=== PATIENT | female | born 1980 | race Caucasian/White ===

== ENCOUNTER 2019-12-21 14:04 | Emergency (ER) | payer MEDICAID ==
[~2019-12-21] VITALS: Ht 172.7 cm; Wt 100.0 kg
--- NOTE | 2019-12-21 14:30 | ED GU-Female ---
General Chief Complaint: Female Reproductive Stated Complaint: CRAMPS/BLOODCLOTS Nursing Triage Note: TO ED PER W/C REPORTS HAD HER PEROID LAST WEEK THAN YESTERDAY STARTED WITH VAG BLEEDING AGAIN WITH LG CLOTS. Nursing Sepsis Screen: No Definite Risk Source: patient Exam Limitations: no limitations History of Present Illness Date Seen by Provider: Dec 21, 2019 Time Seen by Provider: 14:27 Initial Comments To ER with reports of heavy vaginal bleeding that began yesterday. She noticed some clots. She had her period last week. Denies fevers or chills. She was started on antibiotics for a UTI that was believed to be the cause of these symptoms last week. Timing/Duration: constant Severity/Quality: moderate Location: suprapubic Radiation: none Activities at Onset: none Prior Genitourinary Problems: none Associated Symptoms: denies symptoms Allergies and Home Medications Allergies Coded Allergies: No Known Drug Allergies (Unverified , 12/21/19) Home Medications Doxycycline Hyclate 100 Mg Tablet, 100 MG PO BID Prescribed by: ELVA AGUILLON on 12/21/191739 Hydrocodone/Acetaminophen 1 Each Tablet, 1 EACH PO Q4-6HR PRN for PAIN-MODERATE Prescribed by: ELVA AGUILLON on 12/21/191740 Medroxyprogesterone Acetate 10 Mg Tablet, 10 MG PO DAILY Prescribed by: ELVA AGUILLON on 12/21/191739 Metronidazole 500 Mg Tablet, 500 MG PO TID Prescribed by: ELVA AGUILLON on 12/21/191739 Patient Home Medication List Home Medication List Reviewed: Yes Review of Systems Review of Systems Constitutional: see HPI EENTM: see HPI Respiratory: no symptoms reported Cardiovascular: no symptoms reported Genitourinary: see HPI Musculoskeletal: no symptoms reported Skin: no symptoms reported Psychiatric/Neurological: No Symptoms Reported Endocrine: No Symptoms Reported Past [id number]-Umuxxp-Xlapwy Hx Patient Social History Recent Foreign Travel: No Contact w/Someone Who Travel: No Recent Infectious Disease Expo: No Physical Exam Vital Signs Vital Signs - First Documented 12/21/19 14:10 Pulse 110 Resp 18 B/P (MAP) 118/89 (99) Pulse Ox 98 O2 Delivery Room Air Capillary Refill : Less Than 3 Seconds Height, Weight, BMI Height: '" Weight: lbs. oz. kg; 33.00 BMI Method: General Appearance: WD/WN, no apparent distress Neck: non-tender, full range of motion Cardiovascular: no murmur, tachycardia Respiratory: normal breath sounds, no respiratory distress, no accessory muscle use Gastrointestinal: normal bowel sounds, non tender Extremities: normal range of motion, non-tender Neurologic/Psychiatric: alert, normal mood/affect, oriented x 3 Progress/Results/Core Measures Suspected Sepsis Recent Fever Within 48 Hours: No Infection Criteria Present: None New/Unexplained Altered Menta: No Sepsis Screen: No Definite Risk SIRS Temperature: Pulse: 110 Respiratory Rate: 18 Laboratory Tests 12/21/19 14:32: White Blood Count 14.6H Blood Pressure 118 /89 Mean: 99 Laboratory Tests 12/21/19 14:32: Platelet Count 376 Results/Orders Lab Results Laboratory Tests Test 12/21/19 14:32 12/21/19 14:37 12/21/19 17:30 Range/Units White Blood Count 14.6 H 4.3-11.0 10^3/uL Red Blood Count 4.86 4.35-5.85 10^6/uL Hemoglobin 13.4 11.5-16.0 G/DL Hematocrit 40 35-52 % Mean Corpuscular Volume 83 80-99 FL Mean Corpuscular Hemoglobin 28 25-34 PG Mean Corpuscular Hemoglobin Concent 33 32-36 G/DL Red Cell Distribution Width 13.6 10.0-14.5 % Platelet Count 376 130-400 10^3/uL Mean Platelet Volume 9.5 7.4-10.4 FL Neutrophils (%) (Auto) 72 42-75 % Lymphocytes (%) (Auto) 20 12-44 % Monocytes (%) (Auto) 6 0-12 % Eosinophils (%) (Auto) 1 0-10 % Basophils (%) (Auto) 0 0-10 % Neutrophils # (Auto) 10.5 H 1.8-7.8 X 10^3 Lymphocytes # (Auto) 2.9 1.0-4.0 X 10^3 Monocytes # (Auto) 0.9 0.0-1.0 X 10^3 Eosinophils # (Auto) 0.2 0.0-0.3 10^3/uL Basophils # (Auto) 0.0 0.0-0.1 10^3/uL Neutrophils % (Manual) 70 % Lymphocytes % (Manual) 24 % Monocytes % (Manual) 3 % Eosinophils % (Manual) 2 % Basophils % (Manual) 1 % Blood Morphology Comment NORMAL Serum Test, Qualitative NEGATIVE NEGATIVE C-Reactive Protein High Sensitivity 1.10 H 0.00-0.50 MG/DL Urine Color YELLOW Urine Clarity CLEAR Urine pH 6.0 5-9 Urine Specific [place] 1.020 1.016-1.022 Urine Protein NEGATIVE NEGATIVE Urine Glucose (UA) NEGATIVE NEGATIVE Urine Ketones NEGATIVE NEGATIVE Urine Nitrite NEGATIVE NEGATIVE Urine Bilirubin NEGATIVE NEGATIVE Urine Urobilinogen 0.2 < = 1.0 MG/DL Urine Leukocyte Esterase NEGATIVE NEGATIVE Urine RBC (Auto) TRACE-I NEGATIVE Urine RBC 0-2 /HPF Urine WBC 2-5 /HPF Urine Squamous Epithelial Cells RARE /HPF Urine Crystals NONE /LPF Urine Bacteria NEGATIVE /HPF Urine Casts NONE /LPF Urine Mucus SMALL H /LPF Urine Culture Indicated NO Urine Opiates Screen POSITIVE H NEGATIVE Urine Oxycodone Screen NEGATIVE NEGATIVE Urine Methadone Screen NEGATIVE NEGATIVE Urine Propoxyphene Screen NEGATIVE NEGATIVE Urine Barbiturates Screen NEGATIVE NEGATIVE Ur Tricyclic Antidepressants Screen NEGATIVE NEGATIVE Urine Phencyclidine Screen NEGATIVE NEGATIVE Urine Amphetamines Screen POSITIVE H NEGATIVE Urine Methamphetamines Screen POSITIVE H NEGATIVE Urine Benzodiazepines Screen NEGATIVE NEGATIVE Urine Cocaine Screen NEGATIVE NEGATIVE Urine Cannabinoids Screen POSITIVE H NEGATIVE My Orders Orders - ELVA AGUILLON [employer] Cbc With Automated Diff (12/21/19 14:09) Abo Rh Type (12/21/19 14:09) Hcg,Qualitative Serum (12/21/19 14:09) Ua Culture If Indicated (12/21/19 14:09) Drug Screen Stat (Urine) (12/21/19 14:23) Ketorolac Injection (Toradol Injection) (12/21/19 14:45) Diphenhydramine Injection (Benadryl Inje (12/21/19 14:45) Ns Iv 1000 Ml (Sodium Chloride 0.9%) (12/21/19 14:45) Manual Differential (12/21/19 14:32) Us Non Ob Transvaginal [id number] (12/21/19 14:23) Fentanyl Injection (Sublimaze Injection (12/21/19 15:30) Ct Abdomen/Pelvis W (12/21/19 15:27) Hs C Reactive Protein (12/21/19 15:28) Ampicillin/Sulbactam Injection (Unasyn 3 (12/21/19 15:30) Doxycycline Injection (Vibramycin Inject (12/21/19 15:30) Iohexol Injection (Omnipaque 350 Mg/Ml 1 (12/21/19 15:45) Received Contrast (Hold Metformin- Contr (12/21/19 15:45) Sodium Chloride Flush (Catheter Flush Sy (12/21/19 15:45) Ns (Ivpb) (Sodium Chloride 0.9% Ivpb Bag (12/21/19 15:45) Hydrocodone/Apap 5/325 Tablet (Lortab 5 (12/21/19 17:30) Medroxyprogesterone Tablet (Provera Tabl (12/21/19 17:30) Medications Given in ED Current Medications Medications Dose Ordered Sig/Faizan Route Start Time Stop Time Status Last Admin Dose Admin Ampicillin Sodium/ Sulbactam Sodium 3 gm/Sodium Chloride 100 ml @ 200 mls/hr ONCE ONCE IV 12/21/19 15:30 12/21/19 15:59 DC 12/21/19 16:00 200 MLS/HR Diphenhydramine HCl 25 mg ONCE ONCE IVP 12/21/19 14:45 12/21/19 14:46 DC 12/21/19 14:47 25 MG Doxycycline Hyclate 100 mg/ Sodium Chloride 100 ml @ 100 mls/hr ONCE ONCE IV 12/21/19 15:30 12/21/19 16:29 DC 12/21/19 17:06 100 MLS/HR Fentanyl Citrate 50 mcg ONCE ONCE IVP 12/21/19 15:30 12/21/19 15:31 DC 12/21/19 15:31 50 MCG Iohexol 100 ml ONCE ONCE IV 12/21/19 15:45 12/21/19 15:46 DC 12/21/19 16:57 100 ML Ketorolac Tromethamine 15 mg ONCE ONCE IVP 12/21/19 14:45 12/21/19 14:46 DC 12/21/19 14:48 15 MG Sodium Chloride 100 ml ONCE ONCE IV 12/21/19 15:45 12/21/19 15:46 DC 12/21/19 16:57 100 ML Vital Signs/I&O 12/21/19 14:10 Pulse 110 Resp 18 B/P (MAP) 118/89 (99) Pulse Ox 98 O2 Delivery Room Air Capillary Refill : Less Than 3 Seconds Blood Pressure Mean: 99 Diagnostic Imaging Diagonstic Imaging: Xray Comments NAME: JASON REID [facility] REC#: [id number] PT STATUS: REG ER : 1980 PHYSICIAN: ELVA AGUILLON APRN ADMIT DATE: 12/21/19/ER Draft Date of Exam:12/21/19 US NON OB TRANSVAGINAL [id number] PROCEDURE: US NON-OB transvaginal. TECHNIQUE: Multiple Real-time grayscale images were obtained of the pelvis in various projections endovaginally. INDICATION: Pelvic cramping and bleeding. FINDINGS: The uterus is anteverted measuring 8.9 x 4.6 x 5.5 cm. The endometrium is 5 mm in thickness. No myometrial mass is detected. The left ovary is enlarged measuring 7.0 x 5.1 x 4.8 mm. There is a complex mass in the left ovary measuring 3.8 x 4.1 x 3.8 cm. This does show internal septations and most likely represents a hemorrhagic cyst. The right ovary is also enlarged measuring 6.1 x 3.4 x 5.6 cm. There is an area of hypoechogenicity immediately adjacent to or arising from the right ovary measuring 4.6 x 3.0 x 2.7 cm. This too contains internal echoes and appears complex. Minimal free fluid is present. IMPRESSION: Complex adnexal masses bilaterally. This appears to represent a hemorrhagic cyst involving the left ovary. The complex mass on the right is indeterminate but could represent a hemorrhagic cyst as well. The possibility of a paraovarian process such as tubo-ovarian abscess could not be entirely excluded. Followup could be obtained to confirm clearing and stability. No other significant abnormality is detected. Dictated on workstation # [id number] Dict: 12/21/19 1536 Trans: 12/21/19 1541 [id number] Interpreted by: ZACH MANNING MD Electronically signed by: NAME: JASON REID [facility] REC#: [id number] PT STATUS: REG ER : 1980 PHYSICIAN: ELVA AGUILLON APRN ADMIT DATE: 12/21/19/ER Draft Date of Exam:12/21/19 CT ABDOMEN/PELVIS W PROCEDURE: CT abdomen and pelvis with contrast. TECHNIQUE: Multiple contiguous axial images were obtained through the abdomen and pelvis after administration of intravenous contrast. Auto Exposure Controls were utilized during the CT exam to meet ALARA standards for radiation dose reduction. INDICATION: Vaginal bleeding and suprapubic pain. FINDINGS: The lung bases are clear. The liver and gallbladder are unremarkable. No biliary ductal dilatation is detected. Pancreas and spleen are unremarkable. No adrenal mass is detected. Kidneys are unremarkable. There is no hydronephrosis. Aorta is non-aneurysmal. Bowel loops are normal caliber. There is diverticulosis of the sigmoid but no definite evidence of acute diverticulitis is seen. Complex cystic masses in bilateral adnexa are again noted, correlating with findings noted on recent ultrasound. Complex cystic mass on the right is approximately 5.1 cm and lesion on the left is 5.7 cm. No free fluid is seen. Bladder is decompressed. Uterus is unremarkable. No free air is identified. Bony structures are nonacute. IMPRESSION: 1. Uncomplicated diverticulosis. 2. Complex cystic adnexal masses, correlating with ultrasound from the same day and likely ovarian. No other significant abnormality is detected. Dictated on workstation # [id number] Dict: 12/21/19 1703 Trans: 12/21/19 1709 [facility] [id number] Interpreted by: ZACH MANNING MD Electronically signed by: Departure Communication (Admissions) i would like her to be seen this week, called [facility], soonest new patient appointments would be tomorrow at [address] [facility] with Dr Roman Riggs. No openings on or Friday. Impression Primary Impression: Abnormal vaginal bleeding Additional Impression: Ovarian cyst Disposition: 01 HOME, SELF-CARE Condition: Stable Departure-Patient Inst. Decision time for Depature: 17:31 Referrals: DANO LINTON DO NO,LOCAL PHYSICIAN (PCP) Primary Care Physician Patient Instructions: IRREGULAR VAGINAL BLEEDING, Ovarian Cysts Add. Discharge Instructions: Take medication as directed starting this evening 2. Follow-up with Dr. Roman Riggs at the [facility] in [facility] tomorrow morning at 8 AM. Return to ER for any concerns. All discharge instructions reviewed with patient and/or family. Voiced understanding. Scripts Hydrocodone/Acetaminophen (Lorcet 5-325 mg Tablet) 1 Each Tablet 1 EACH PO Q4-6HR PRN for PAIN-MODERATE MDD 10 for 7 Days, #20 TAB Prov: ELVA AGUILLON APRN 12/21/19 Medroxyprogesterone Acetate (Medroxyprogesterone Acetate) 10 Mg Tablet 10 MG PO DAILY, #2 TAB Prov: ELVA AGUILLON APRN 12/21/19 Metronidazole (Flagyl) 500 Mg Tablet 500 MG PO TID, #21 TAB Prov: ELVA AGUILLON APRN 12/21/19 Doxycycline Hyclate (Doxycycline Hyclate) 100 Mg Tablet 100 MG PO BID, #20 TAB 0 Refills Prov: ELVA AGUILLON APRN 12/21/19 Copy Copies To 1: ROMAN RIGGS MD, PETER J APRN Dec 21, 2019 14:29
[2019-12-21 14:44] LABS: BASOPHILS % (AUTO) 0 % (0-10); EOSINOPHILS # (AUTO) 0.2 10^3/uL (0.0-0.3); EOSINOPHILS % (AUTO) 1 % (0-10); HEMATOCRIT 40 % (35-52); HEMOGLOBIN 13.4 G/DL (11.5-16.0); LYMPHOCYTES # (AUTO) 2.9 X 10^3 (1.0-4.0); LYMPHOCYTES % (AUTO) 20 % (12-44); MEAN CORPUSCULAR HEMOGLOBIN 28 PG (25-34); MEAN CORPUSCULAR HGB CONC 33 G/DL (32-36); MEAN CORPUSCULAR VOLUME 83 FL (80-99); MEAN PLATELET VOLUME 9.5 FL (7.4-10.4); MONOCYTES # (AUTO) 0.9 X 10^3 (0.0-1.0); MONOCYTES % (AUTO) 6 % (0-12); NEUTROPHILS # (AUTO) 10.5 X 10^3 (1.8-7.8); NEUTROPHILS % (AUTO) 72 % (42-75); PLATELET COUNT 376 10^3/uL (130-400); RED CELL DISTRIBUTION WIDTH 13.6 % (10.0-14.5); WHITE BLOOD COUNT 14.6 10^3/uL (4.3-11.0)
[2019-12-21] MEDS ORDERED: diphenhydrAMINE 50 MG/ML INJ (BENADRYL) IVP ONE (14:45)
[2019-12-21] MEDS ORDERED: NS IV 1000 ML 1,000 ML IV SCH (14:45)
[2019-12-21] MEDS ORDERED: KETOROLAC 30 MG/ML VIAL IVP ONE (14:45)
[2019-12-21] MEDS ORDERED: DOXYCYCLINE INJECTION 100 MG in NS (IVPB) 100 ML IV ONE (15:30)
[2019-12-21] MEDS ORDERED: AMPICILLIN/SULBACTAM INJECTION 3 GM in NS (IVPB) 100 ML IV ONE (15:30)
[2019-12-21] MEDS ORDERED: fentaNYL INJECTION 100 MCG/2 ML AMP IVP ONE (15:30)
--- OUTSIDE RECORDS SUMMARY | 2019-12-21 15:35 | XMS REPORT | Continuity of Care Document ---
Author Organization Unknown Address Unknown Phone Unavailable Allergies There is no data. Medications There is no data. Problems There is no data. Procedures There is no data. Results Test Result Range Complete blood count (CBC) with automate d white blood cell (WBC) differential - 12/21/19 14:32 Blood leukocytes automated count (number/volume) 14.6 10*3/uL 4.3-11.0 Blood erythrocytes automated count (number/volume) 4.86 10*6/uL 4.35-5.85 Venous blood hemoglobin measurement (mass/volume) 13.4 g/dL 11.5-16.0 Blood hematocrit (volume fraction) 40 % 35-52 Automated erythrocyte mean corpuscular volume 83 [ foz_us] 80-99 Automated erythrocyte mean corpuscular h emoglobin (mass per erythrocyte) 28 pg 25-34 Automated erythrocyte mean corpuscular h emoglobin concentration measurement (mass/volume) 33 g/dL 32-36 Automated erythrocyte distribution width ratio 13. 6 % 10.0- 14.5 Automated blood platelet count (count/volume) 376 10*3/uL 130-400 Automated blood platelet mean volume measurement 9.5 [foz_us] 7.4-10.4 Automated blood neutrophils/100 leukocytes 72 % 42-75 Automated blood lymphocytes/100 leukocytes 20 % 12-44 Blood monocytes/100 leukocytes 6 % 0-12 Automated blood eosinophils/100 leukocytes 1 % 0-10 Automated blood basophils/100 leukocytes 0 % 0-10 Blood neutrophils automated count (number/volume) 10.5 10*3 1.8-7.8 Blood lymphocytes automated count (number/volume) 2.9 10*3 1.0-4.0 Blood monocytes automated count (number/volume) 0. 9 10*3 0.0-1.0 Automated eosinophil count 0.2 10*3/uL 0 .0-0.3 Automated blood basophil count (count/volume) 0.0 10*3/uL 0.0-0.1 Serum or plasma choriogonadotropin (preg jhony test) detection - 12/21/19 14:32 Serum or plasma choriogonadotropin ( test) de tection NEGATIVE NEGATIVE ABO+Rh group - 12/21/19 14:37 ABO+Rh group OP NRG Encounters ACCT No. Visit Date/Time Discharge Status Pt. Type Provider Facility Loc./Unit Complaint [id number] 12/08/2019 18:30:00 12/08/2019 23:59: 59 [facility] [id number] 12/21/2019 14:45:00 Document Registration
--- NOTE | 2019-12-21 15:41 | Diagnostic Imaging Report ---
PROCEDURE: US NON-OB transvaginal. TECHNIQUE: Multiple Real-time grayscale images were obtained of the pelvis in various projections endovaginally. INDICATION: Pelvic cramping and bleeding. FINDINGS: The uterus is anteverted measuring 8.9 x 4.6 x 5.5 cm. The endometrium is 5 mm in thickness. No myometrial mass is detected. The left ovary is enlarged measuring 7.0 x 5.1 x 4.8 mm. There is a complex mass in the left ovary measuring 3.8 x 4.1 x 3.8 cm. This does show internal septations and most likely represents a hemorrhagic cyst. The right ovary is also enlarged measuring 6.1 x 3.4 x 5.6 cm. There is an area of hypoechogenicity immediately adjacent to or arising from the right ovary measuring 4.6 x 3.0 x 2.7 cm. This too contains internal echoes and appears complex. Minimal free fluid is present. IMPRESSION: Complex adnexal masses bilaterally. This appears to represent a hemorrhagic cyst involving the left ovary. The complex mass on the right is indeterminate but could represent a hemorrhagic cyst as well. The possibility of a paraovarian process such as tubo-ovarian abscess could not be entirely excluded. Followup could be obtained to confirm clearing and stability. No other significant abnormality is detected. Dictated by: Dictated on workstation # [id number]
[2019-12-21] MEDS ORDERED: HOLD METFORMIN - RECEIVED CONTRAST 20 ML VIAL IV SCH (15:45)
[2019-12-21] MEDS ORDERED: IOHEXOL 350 MG/ML 100 ML (OMNIPAQUE 350) VIAL IV ONE (15:45)
[2019-12-21] MEDS ORDERED: NS 100 ML (IVPB) BAG IV ONE (15:45)
[2019-12-21] MEDS ORDERED: CATHETER FLUSH 10 ML SYR IV PRN (15:45)
[2019-12-21 15:51] LABS: BASOPHILS % (MANUAL) 1 %; EOSINOPHILS % (MANUAL) 2 %; LYMPHOCYTES % (MANUAL) 24 %; MONOCYTES % (MANUAL) 3 %; NEUTROPHILS % (MANUAL) 70 %; RBC MORPH NORMAL
--- NOTE | 2019-12-21 17:09 | Diagnostic Imaging Report ---
PROCEDURE: CT abdomen and pelvis with contrast. TECHNIQUE: Multiple contiguous axial images were obtained through the abdomen and pelvis after administration of intravenous contrast. Auto Exposure Controls were utilized during the CT exam to meet ALARA standards for radiation dose reduction. INDICATION: Vaginal bleeding and suprapubic pain. FINDINGS: The lung bases are clear. The liver and gallbladder are unremarkable. No biliary ductal dilatation is detected. Pancreas and spleen are unremarkable. No adrenal mass is detected. Kidneys are unremarkable. There is no hydronephrosis. Aorta is non-aneurysmal. Bowel loops are normal caliber. There is diverticulosis of the sigmoid but no definite evidence of acute diverticulitis is seen. Complex cystic masses in bilateral adnexa are again noted, correlating with findings noted on recent ultrasound. Complex cystic mass on the right is approximately 5.1 cm and lesion on the left is 5.7 cm. No free fluid is seen. Bladder is decompressed. Uterus is unremarkable. No free air is identified. Bony structures are nonacute. IMPRESSION: 1. Uncomplicated diverticulosis. 2. Complex cystic adnexal masses, correlating with ultrasound from the same day and likely ovarian. No other significant abnormality is detected. Dictated by: Dictated on workstation # [id number]
--- NOTE | 2019-12-21 17:29 | NUR ---
CALLED AND GAVE HER FRIEND TAWANA UPDATE PER PATIENT REQUEST.
[2019-12-21] MEDS ORDERED: HYDROcodone/APAP 5 MG/325 MG (LORTAB) TAB PO ONE (17:30)
[2019-12-21] MEDS ORDERED: medroxyPROGESTERone 10 MG (PROVERA) TAB PO ONE (17:30)
[2019-12-21 17:36] LABS: BILIRUBIN,URINE NEGATIVE (NEGATIVE); CLARITY,URINE CLEAR; COLOR,URINE YELLOW; GLUCOSE, URINE (UA) NEGATIVE (NEGATIVE); KETONES,URINE NEGATIVE (NEGATIVE); LEUKOCYTE ESTERASE ,URINE NEGATIVE (NEGATIVE); NITRITE,URINE NEGATIVE (NEGATIVE); PROTEIN,URINE NEGATIVE (NEGATIVE)
[2019-12-21] MEDS ORDERED: MEDR10TA9 PO (17:40)
[2019-12-21] MEDS ORDERED: DOXY100T2 PO (17:40)
[2019-12-21] MEDS ORDERED: METR500T PO (17:40)
[2019-12-21] MEDS ORDERED: HYDR-3870 PO (17:40)
[2019-12-21 17:48] LABS: BACTERIA,URINE NEGATIVE /HPF; RBC,URINE 0-2 /HPF; SQUAMOUS EPITHELIAL CELL,UR RARE /HPF
[2019-12-21 17:54] LABS: AMPHETAMINE SCREEN, URINE POSITIVE (NEGATIVE); BARBITURATE SCREEN URINE NEGATIVE (NEGATIVE); BENZODIAZEPINES SCREEN URINE NEGATIVE (NEGATIVE); CANNABINOID SCREEN, URINE POSITIVE (NEGATIVE); COCAINE SCREEN URINE NEGATIVE (NEGATIVE); METHADONE STAT NEGATIVE (NEGATIVE); METHAMPHETAMINE SCREEN URINE S POSITIVE (NEGATIVE); OPIATE SCREEN URINE POSITIVE (NEGATIVE); OXYCODONE STAT NEGATIVE (NEGATIVE); PROPOXYPHENE STAT NEGATIVE (NEGATIVE); TRICYCLIC ANTIDEPRESSANTS SCRE NEGATIVE (NEGATIVE)
[2019-12-21 18:25] VITALS: BP 128/81
== END 2019-12-21 18:17 | disposition home or self-care (01) ==
LOC: EDUNIT# 14:04 → ER 14:06
DX: N93.9 Abnormal uterine and vaginal bleeding, unspecified (principal); N83.202 Unspecified ovarian cyst, left side; N83.201 Unspecified ovarian cyst, right side
CPT/HCPCS: 36415; 51701; 74177; 76830; 80306; 81000; 84703; 85007; 85027; 86141; 86900; 86901

== ENCOUNTER 2020-01-11 19:42 | Inpatient (IN) | payer SELFPAY ==
[~2020-01-11] VITALS: Ht 172.7 cm; Wt 106.5 kg
[~2020-01-11 19:42] MED LIST: DOXY100T2 PO; HYDR-3870 PO; MEDR10TA9 PO; METR500T PO
--- NOTE | 2020-01-11 19:59 | ED Abdominal Pain ---
General Stated Complaint: R SIDE PAIN Source of Information: Patient Exam Limitations: No Limitations History of Present Illness Date Seen by Provider: Jan 11, 2020 Time Seen by Provider: 19:45 Initial Comments The patient presents to ER by private conveyance from home with chief complaint of about 3 or 4 days of right lower quadrant abdominal pain presently 8 out of 10. She has not taken anything for the pain. She says she had the same symptoms a week or 2 ago and presented to the ER. They said she had a ruptured cyst and put her on a couple antibiotics. She has some pressure with urination. She was only able to pickler helper one of the antibiotics because of cost but she took it to completion and her symptoms were improving until a couple days after she completed. She also has regular periods usually lasting 3-4 days every month and her last missed her period was about 2 days prior to her last bout of abdominal pain starting. She had some bleeding and passing of clots lasting about one half weeks associated with her last bout of pain but she's not having any discharge or bleeding today. She's had her appendix out historically and half of her cervix taken out when she was 20 years old. She has not followed up with any Pap smear since that day. Last time she seen in the on line csr was when she had her last daughter 10 years ago. She's not having any fevers nausea cough shortness of breath or chest pain. Last use of methamphetamines was smoked 3-4 days ago. She is sexually active but not on any kind of control surgical or medical. She prefers men. No history of kidney stones. The patient was set up to follow with Dr. Riggs however she did not make this appointment because of lack of transportation. The patient does not follow with a primary care provider and his never seen anyone at [facility] before. Allergies and Home Medications Allergies Coded Allergies: No Known Drug Allergies (Unverified , 12/21/19) Home Medications Doxycycline Hyclate 100 Mg Tablet, 100 MG PO BID Prescribed by: ELVA AGUILLON on 12/21/191739 Hydrocodone/Acetaminophen 1 Each Tablet, 1 EACH PO Q4-6HR PRN for PAIN-MODERATE Prescribed by: ELVA AGUILLON on 12/21/191740 Medroxyprogesterone Acetate 10 Mg Tablet, 10 MG PO DAILY Prescribed by: ELVA AGUILLON on 12/21/191739 Metronidazole 500 Mg Tablet, 500 MG PO TID Prescribed by: ELVA AGUILLON on 12/21/19 6830 Patient Home Medication List Home Medication List Reviewed: Yes Review of Systems Review of Systems Constitutional: No chills, No diaphoresis, No fever, No malaise EENTM: No Blurred Vision, No Double Vision Respiratory: Denies Cough, Denies Orthopnea Cardiovascular: Denies Chest Pain, Denies Lightheadedness Gastrointestinal: See HPI, Abdominal Pain; Denies Constipated, Denies Diarrhea, Denies Nausea Genitourinary: Denies Burning, Denies Discharge; Urgency, Other (pressure) Musculoskeletal: No back pain, No joint pain Skin: No pruritus, No rash All Other Systems Reviewed Negative Unless Noted: Yes Past [id number]-[id number] Hx Patient Social History Alcohol Use: Denies Use Recreational Drug Use: Yes Drug of Choice: smokes Meth, cannabis Smoking Status: Current Everyday Smoker Type Used: Cigarettes Recent Foreign Travel: No Contact w/Someone Who Travel: No Physical Exam Vital Signs Vital Signs - First Documented 01/11/20 19:47 Temp 36.5 Pulse 113 Resp 20 B/P (MAP) 158/103 (121) Pulse Ox 98 O2 Delivery Room Air Capillary Refill : Height/Weight/BMI Height: '" Weight: lbs. oz. kg; 33.00 BMI Method: General Appearance: WD/WN, moderate distress HEENT: PERRL/EOMI, normal ENT inspection, pharynx normal Neck: non-tender, full range of motion, supple, normal inspection Respiratory: chest non-tender, lungs clear, normal breath sounds, no respiratory distress, no accessory muscle use Cardiovascular: normal peripheral pulses, regular rate, rhythm, no edema Peripheral Pulses: 2+ Radial Pulses (R), 2+ Radial Pulses (L) Gastrointestinal: normal bowel sounds, soft, no organomegaly; No guarding, No rebound; tenderness (right lower quadrant) Extremities: normal range of motion, non-tender, normal inspection, no pedal edema Back: normal inspection, no CVA tenderness Neurologic/Psychiatric: alert, normal mood/affect, oriented x 3 Skin: normal color, warm/dry Focused Exam Sepsis Stage: Sepsis Possible Source: Genitouriary Lactate Level 01/11/20 21:50: Lactic Acid Level 0.64 01/12/20 01:45: Lactic Acid Level 0.75 Time of Focused Exam: 02:28 Respiratory: Lungs Clear, Normal Breath Sounds, No Accessory Muscle Use, No Respiratory Distress Cardiovascular: Regular Rate, Rhythm (70), No Edema, Normal Peripheral Pulses Capillary Refill: Less Than 3 Seconds Peripheral Pulses: 2+ Dorsalis Pedis (R), 2+ Left Dors-Pedis (L) Skin: normal color, warm/dry Lactic Acid Level Laboratory Tests Test 01/11/20 21:50 01/12/20 01:45 Lactic Acid Level 0.64 MMOL/L (0.50-2.00) 0.75 MMOL/L (0.50-2.00) Within 3hrs of presentation: Admin fluids, Admin ABX, Blood cultures prior to ABX's, Focus exam, Lactate level Procedures/Interventions Lumen: triple Central Line Procedure: betadine prep (chlorhexidine), sterile drapes applied, sterile dressing applied Position: internal jugular (R) Anesthesia: Lidocaine (1%) Volume Anesthetic (ccs): 3 Complications: none Post Position: sutured, good blood return, position confirmed w/ CXR Risks, benefits and alternatives were discussed with the patient and she consented to the procedure. She was positioned in the usual format and using the usual sterile garment and drapes the patient was draped out. The skin was thoroughly cleaned with the supplied chlorhexidine prep. After the prep and dried a sterile drape was placed. The 16 cm 7 Cameroonian triple-lumen catheter was flushed with sterile saline. We used ultrasound guidance to pass the introducer needle into the right internal jugular without difficulty. A guidewire was placed easily without difficulty. No ectopy was seen on the monitor. The supplied 11 blade scalpel was used to make a 2 mm incision at the inferior portion of the introducer needle. The introducer needle was replaced with the dilator. The dilator was taken out and the patient had the central lumen of the triple lumen catheter threaded over the guidewire and placed at 12.5 Cm. The guidewire was removed and the triple-lumen catheter was stitched in place using the supplied braided stitch at 2 different points. The catheter withdrew blood and flushed easily. A sterile dressing was placed over the catheter. The patient tolerated the procedure well. A chest x-ray was obtained that demonstrated no pneumothorax and a new interval central catheter over the shadow of the right internal jugular down the superior vena cava and terminating just proximal to the right atria. Progress/Results/Core Measures Results/Orders Lab Results Laboratory Tests Test 01/11/20 21:50 01/12/20 01:00 01/12/20 01:45 Range/Units White Blood Count 13.9 H 4.3-11.0 10^3/uL Red Blood Count 4.81 4.35-5.85 10^6/uL Hemoglobin 13.3 11.5-16.0 G/DL Hematocrit 40 35-52 % Mean Corpuscular Volume 83 80-99 FL Mean Corpuscular Hemoglobin 28 25-34 PG Mean Corpuscular Hemoglobin Concent 33 32-36 G/DL Red Cell Distribution Width 14.0 10.0-14.5 % Platelet Count 362 130-400 10^3/uL Mean Platelet Volume 9.4 7.4-10.4 FL Neutrophils (%) (Auto) 68 42-75 % Lymphocytes (%) (Auto) 23 12-44 % Monocytes (%) (Auto) 8 0-12 % Eosinophils (%) (Auto) 1 0-10 % Basophils (%) (Auto) 0 0-10 % Neutrophils # (Auto) 9.4 H 1.8-7.8 X 10^3 Lymphocytes # (Auto) 3.2 1.0-4.0 X 10^3 Monocytes # (Auto) 1.1 H 0.0-1.0 X 10^3 Eosinophils # (Auto) 0.2 0.0-0.3 10^3/uL Basophils # (Auto) 0.0 0.0-0.1 10^3/uL Prothrombin Time 13.2 12.2-14.7 SEC INR Comment 1.0 0.8-1.4 Activated Partial Thromboplast Time 31 24-35 SEC Sodium Level 138 135-145 MMOL/L Potassium Level 4.1 3.6-5.0 MMOL/L Chloride Level 106 98-107 MMOL/L Carbon Dioxide Level 20 L 21-32 MMOL/L Anion Gap 12 5-14 MMOL/L Blood Urea Nitrogen 12 7-18 MG/DL Creatinine 0.67 0.60-1.30 MG/DL Estimat Glomerular Filtration Rate > 60 BUN/Creatinine Ratio 18 Glucose Level 90 70-105 MG/DL Lactic Acid Level 0.64 0.75 0.50-2.00 MMOL/L Calcium Level 9.0 8.5-10.1 MG/DL Corrected Calcium 9.1 8.5-10.1 MG/DL Total Bilirubin 0.6 0.1-1.0 MG/DL Aspartate Amino Transf (AST/SGOT) 15 5-34 U/L Alanine Aminotransferase (ALT/SGPT) 16 0-55 U/L Alkaline Phosphatase 104 40-136 U/L Total Creatine Kinase 27 L 29-168 U/L C-Reactive Protein High Sensitivity 0.15 0.00-0.50 MG/DL Total Protein 7.0 6.4-8.2 GM/DL Albumin 3.9 3.2-4.5 GM/DL Lipase 11 8-78 U/L Serum Test, Qualitative NEGATIVE NEGATIVE Urine Color YELLOW Urine Clarity SL CLOUDY Urine pH 6.0 5-9 Urine Specific [place] 1.025 H 1.016-1.022 Urine Protein NEGATIVE NEGATIVE Urine Glucose (UA) NEGATIVE NEGATIVE Urine Ketones NEGATIVE NEGATIVE Urine Nitrite POSITIVE H NEGATIVE Urine Bilirubin NEGATIVE NEGATIVE Urine Urobilinogen 0.2 < = 1.0 MG/DL Urine Leukocyte Esterase NEGATIVE NEGATIVE Urine RBC (Auto) TRACE-I NEGATIVE Urine RBC 0-2 /HPF Urine WBC 0-2 /HPF Urine Squamous Epithelial Cells 2-5 /HPF Urine Crystals NONE /LPF Urine Bacteria LARGE H /HPF Urine Casts NONE /LPF Urine Mucus SMALL H /LPF Urine Culture Indicated CULTURE PENDING Urine Opiates Screen NEGATIVE NEGATIVE Urine Oxycodone Screen NEGATIVE NEGATIVE Urine Methadone Screen NEGATIVE NEGATIVE Urine Propoxyphene Screen NEGATIVE NEGATIVE Urine Barbiturates Screen NEGATIVE NEGATIVE Ur Tricyclic Antidepressants Screen NEGATIVE NEGATIVE Urine Phencyclidine Screen NEGATIVE NEGATIVE Urine Amphetamines Screen POSITIVE H NEGATIVE Urine Methamphetamines Screen POSITIVE H NEGATIVE Urine Benzodiazepines Screen NEGATIVE NEGATIVE Urine Cocaine Screen NEGATIVE NEGATIVE Urine Cannabinoids Screen POSITIVE H NEGATIVE My Orders Orders - CASSANDRA CASE Ua Culture If Indicated (01/11/20 19:45) Drug Screen Stat (Urine) (01/11/20 19:53) Creatine Kinase (01/11/20 19:53) Cbc With Automated Diff (01/11/20 19:53) Comprehensive Metabolic Panel (01/11/20 19:53) Hs C Reactive Protein (01/11/20 19:53) Lipase (01/11/20 19:53) Ketorolac Injection (Toradol Injection) (01/11/20 20:15) Ed Iv/Invasive Line Start (01/11/20 20:06) Lactated Ringers (Lr 1000 Ml Iv Solution (01/11/20 20:06) Lactated Ringers (Lr 1000 Ml Iv Solution (01/11/20 20:15) Piperacillin/Tazobactam (Bulk) (Zosyn In (01/11/20 20:15) Protime With Inr (01/11/20 20:06) Partial Thromboplastin Time (01/11/20 20:06) Lactic Acid Analyzer (01/11/20 20:08) Chest 1 View, Ap/Pa Only (01/11/20 21:28) Piperacillin Sodium/Tazobactam (Zosyn Vi (01/11/20 22:03) Ns (Ivpb) (Sodium Chloride 0.9% Ivpb Bag (01/11/20 22:04) Fentanyl Injection (Sublimaze Injection (01/11/20 23:15) Ondansetron Injection (Zofran Injectio (01/11/20 23:30) Urine Culture (01/11/20 23:26) Ed Iv/Invasive Line Start (01/11/20 23:26) Ed Iv/Invasive Line Start (01/11/20 23:26) Vital Signs Adult Sepsis Patie Q15M (01/11/20 23:26) O2 (01/11/20 23:26) Remove Rings In Anticipation O (01/11/20 23:26) Lactic Acid Analyzer (01/11/20 23:26) Blood Culture (01/11/20 23:28) Ct Abdomen/Pelvis W (01/12/20 00:01) Hcg,Qualitative Serum (01/12/20 00:07) Iohexol Injection (Omnipaque 350 Mg/Ml 1 (01/12/20 01:00) Received Contrast (Hold Metformin- Contr (01/12/20 01:00) Sodium Chloride Flush (Catheter Flush Sy (01/12/20 01:00) Ns (Ivpb) (Sodium Chloride 0.9% Ivpb Bag (01/12/20 01:00) Neis Jose Dna Urine Test (01/12/20 02:44) Chlamydia Trachomatis Urine (01/12/20 02:44) Medications Given in ED Current Medications Medications Dose Ordered Sig/Faizan Route Start Time Stop Time Status Last Admin Dose Admin Fentanyl Citrate 50 mcg ONCE ONCE IVP 01/11/20 23:15 01/11/20 23:16 DC 01/11/20 23:15 50 MCG Iohexol 100 ml ONCE ONCE IV 01/12/20 01:00 01/12/20 01:01 DC 01/12/20 01:01 100 ML Ketorolac Tromethamine 30 mg ONCE ONCE IVP 01/11/20 20:15 01/11/20 20:16 DC 01/11/20 22:30 30 MG Lactated Ringer's 1,000 ml @ 0 mls/hr Q0M ONCE IV 01/11/20 20:06 01/11/20 20:08 DC 01/11/20 22:30 0 MLS/HR Ondansetron HCl 8 mg ONCE ONCE IVP 01/11/20 23:30 01/11/20 23:31 DC 01/12/20 00:29 8 MG Piperacillin Sod/ Tazobactam Sod 4.5 gm/Sodium Chloride 120 ml @ 240 mls/hr ONCE ONCE IV 01/11/20 20:15 01/11/20 20:44 DC 01/11/20 22:32 240 MLS/HR Sodium Chloride 10 ml NEEDED PRN IV 01/12/20 01:00 01/12/20 01:02 10 ML Sodium Chloride 100 ml ONCE ONCE IV 01/12/20 01:00 01/12/20 01:01 DC 01/12/20 01:02 80 ML Vital Signs/I&O 01/11/20 19:47 Temp 36.5 Pulse 113 Resp 20 B/P (MAP) 158/103 (121) Pulse Ox 98 O2 Delivery Room Air 01/12/20 00:00 Intake Total 2120 ml Balance 2120 ml Progress Progress Note #1: Time: 20:04 Progress Note Last time the patient was seen in the ER for heavy vaginal bleeding with clots and at that time was already on antibiotics for a UTI. She was discharged on Flagyl and doxycycline. My suspicion is she probably did not pickler helper the doxycycline secondary to cost. At this time PID or tubo-ovarian abscess is possible. Patient has no subjective fevers and is afebrile this time but tachycardic which could either related to infection or methamphetamine usage. Plan to give her 20 mL per kilogram fluid bolus and cover her with Zosyn. Progress Note #2: Time: 21:56 Progress Note After multiple nurses made multiple attempts to get peripheral IV access this provider and another provider when and with ultrasound and attempted 3 separate sites unsuccessfully to get a peripheral IV. We discussed the risks, benefits and alternatives with the patient doing a central line for IV access and since the patient. 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 Progress Note #3: Time: 23:25 Progress Note The patient is nauseated so 8 mg Zofran were ordered. She is asking for something to eat which we have encouraged her not to do. She was still having pain after the Toradol so 50 g of fentanyl were ordered. Plan to get a CT of her abdomen pelvis to help us look for tubo-ovarian abscess etc. Progress Note #4: Time: 01:58 Progress Note The patient's feeling much better. Her vital signs normalize. She's been afebrile and her heart rate is now in the 70s. Suspect the methamphetamines and pain may be contributed some to her early presentation. Perhaps she has an ova tamera cyst causing her pain warning complete treated infection. We did offer her outpatient follow-up versus an observation stay given the fact she did meet sepsis criteria. Patient says she would feel better staying in the hospital. Diagnostic Imaging Diagonstic Imaging: Xray Plain Films/CT/US/NM/MRI: chest (1v) Comments No acute infiltrate. There is a central line catheter entering at the level of the right internal jugular overlying the shadow of the superior vena cava and terminating just above the right atria. No evidence of pneumothorax. Does not cross the midline. Reviewed: Reviewed by Me Plain Films/CT/US/NM/MRI: abdomen, pelvis Comments Right ovarian cyst measuring 3.1 x 3.87 m. Diverticulosis without diverticulitis. Apparent prominence of the mucosa of the transverse descending and sigmoid colon most likely related to under distention. Colitis is less likely. Reviewed: Reviewed Night Noah Study, Reviewed by Me Departure Communication (Admissions) Time/Spoke to Admitting Phy: 02:35 Discussed the case with Dr. Carpenter and she agrees with admission to the floor and consult for treatment with gynecology. Time/Spoke to Consulting Phy: 02:45 Discussed the case with Dr. Bonifacio, gynecology and he agrees with antibiotics and get a transvaginal pelvic ultrasound first thing in the morning. He's available if they have any further questions. Impression Primary Impression: Ovarian cyst Qualified Codes: N83.201 - Unspecified ovarian cyst, right side Additional Impressions: Tubal ovarian abscess Sepsis Qualified Codes: A41.9 - Sepsis, unspecified organism Disposition: ADMITTED INPATIENT Condition: Stable Admissions Decision to Admit Reason: Admit from ER (General) Decision to Admit/Date: Jan 12, 2020 Time/Decision to Admit Time: 02:00 Departure-Patient Inst. Referrals: NO,LOCAL PHYSICIAN (PCP) Primary Care Physician ROMAN RIGGS MD Patient Instructions: Pelvic Inflammatory Disease (DC), Ovarian Cysts Copy Copies To 1: DANO LINTON TITUS J Jan 11, 2020 19:59
[2020-01-11] MEDS ORDERED: LACTATED RINGERS 1,000 ML IV ONE (20:06)
[2020-01-11] MEDS ORDERED: KETOROLAC 30 MG/ML VIAL IVP ONE (20:15)
[2020-01-11] MEDS ORDERED: LACTATED RINGERS 1,000 ML IV SCH (20:15)
[2020-01-11] MEDS ORDERED: PIPERACILLIN/TAZOBACTAM (BULK) 4.5 GM in NS (IVPB) 100 ML IV ONE (20:15)
--- NOTE | 2020-01-11 20:32 | NUR ---
After multiple IV attempts made by multiple RN's, unable to obtain IV access. Provider notified.
[2020-01-11 22:01] LABS: BASOPHILS % (AUTO) 0 % (0-10); EOSINOPHILS # (AUTO) 0.2 10^3/uL (0.0-0.3); EOSINOPHILS % (AUTO) 1 % (0-10); HEMATOCRIT 40 % (35-52); HEMOGLOBIN 13.3 G/DL (11.5-16.0); LYMPHOCYTES # (AUTO) 3.2 X 10^3 (1.0-4.0); LYMPHOCYTES % (AUTO) 23 % (12-44); MEAN CORPUSCULAR HEMOGLOBIN 28 PG (25-34); MEAN CORPUSCULAR HGB CONC 33 G/DL (32-36); MEAN CORPUSCULAR VOLUME 83 FL (80-99); MEAN PLATELET VOLUME 9.4 FL (7.4-10.4); MONOCYTES # (AUTO) 1.1 X 10^3 (0.0-1.0); MONOCYTES % (AUTO) 8 % (0-12); NEUTROPHILS # (AUTO) 9.4 X 10^3 (1.8-7.8); NEUTROPHILS % (AUTO) 68 % (42-75); PLATELET COUNT 362 10^3/uL (130-400); WHITE BLOOD COUNT 13.9 10^3/uL (4.3-11.0)
[2020-01-11] MEDS ORDERED: PIPERACILLIN/TAZO 4.5 GM VIAL (ZOSYN) IV ONE (22:03)
[2020-01-11] MEDS ORDERED: NS (IVPB) 100 ML ONE (22:04)
[2020-01-11 22:15] LABS: ALBUMIN 3.9 GM/DL (3.2-4.5); CHLORIDE 106 MMOL/L (98-107); POTASSIUM 4.1 MMOL/L (3.6-5.0); SODIUM 138 MMOL/L (135-145)
[2020-01-11 22:17] LABS: GLUCOSE 90 MG/DL (70-105)
[2020-01-11 22:18] LABS: CARBON DIOXIDE 20 MMOL/L (21-32)
[2020-01-11 22:19] LABS: BILIRUBIN,TOTAL 0.6 MG/DL (0.1-1.0); PROTHROMBIN TIME PATIENT 13.2 SEC (12.2-14.7)
[2020-01-11 22:21] LABS: ALKALINE PHOSPHATASE 104 U/L (40-136); CREATININE SERUM 0.67 MG/DL (0.60-1.30); GFR ESTIMATED > 60
[2020-01-11 22:22] LABS: BUN/CREATININE RATIO 18
[2020-01-11 22:24] LABS: ALANINE AMINOTRANSFERASE 16 U/L (0-55); CREATINE KINASE 27 U/L (29-168); LIPASE 11 U/L (8-78)
--- NOTE | 2020-01-11 23:00 | NUR ---
PCCT ASSISTED PT TO BEDSIDE COMMODE TO OBTAIN CLEAN CATCH URINE SAMPLE. PT UNABLE TO URINATE AT THIS TIME. PROVIDER NOTIFIED.
[2020-01-11] MEDS ORDERED: fentaNYL INJECTION 100 MCG/2 ML AMP IVP ONE (23:15)
[2020-01-11] MEDS ORDERED: ONDANSETRON 4 MG/2 ML (SDV) Z0FRAN IVP ONE (23:30)
[2020-01-12] MEDS ORDERED: NS 100 ML (IVPB) BAG IV ONE (01:00)
[2020-01-12] MEDS ORDERED: HOLD METFORMIN - RECEIVED CONTRAST 20 ML VIAL IV SCH (01:00)
[2020-01-12] MEDS ORDERED: IOHEXOL 350 MG/ML 100 ML (OMNIPAQUE 350) VIAL IV ONE (01:00)
[2020-01-12] MEDS ORDERED: CATHETER FLUSH 10 ML SYR IV PRN (01:00)
--- NOTE | 2020-01-12 01:00 | NUR ---
Assisted pt to restroom to obtain clean catch urine sample.
[2020-01-12 01:12] LABS: BILIRUBIN,URINE NEGATIVE (NEGATIVE); CLARITY,URINE SL CLOUDY; COLOR,URINE YELLOW; GLUCOSE, URINE (UA) NEGATIVE (NEGATIVE); KETONES,URINE NEGATIVE (NEGATIVE); LEUKOCYTE ESTERASE ,URINE NEGATIVE (NEGATIVE); NITRITE,URINE POSITIVE (NEGATIVE); PROTEIN,URINE NEGATIVE (NEGATIVE)
[2020-01-12 01:24] LABS: BACTERIA,URINE LARGE /HPF; RBC,URINE 0-2 /HPF; WBC,URINE 0-2 /HPF
[2020-01-12 01:26] LABS: AMPHETAMINE SCREEN, URINE POSITIVE (NEGATIVE); BARBITURATE SCREEN URINE NEGATIVE (NEGATIVE); BENZODIAZEPINES SCREEN URINE NEGATIVE (NEGATIVE); CANNABINOID SCREEN, URINE POSITIVE (NEGATIVE); COCAINE SCREEN URINE NEGATIVE (NEGATIVE); METHADONE STAT NEGATIVE (NEGATIVE); METHAMPHETAMINE SCREEN URINE S POSITIVE (NEGATIVE); OPIATE SCREEN URINE NEGATIVE (NEGATIVE); OXYCODONE STAT NEGATIVE (NEGATIVE); PROPOXYPHENE STAT NEGATIVE (NEGATIVE); TRICYCLIC ANTIDEPRESSANTS SCRE NEGATIVE (NEGATIVE)
[2020-01-12] MEDS ORDERED: ONDA4TAB11 PO (02:03)
[2020-01-12] MEDS ORDERED: ACHD5005 PO (02:03)
[2020-01-12] MEDS ORDERED: DOXY100T31 PO (02:03)
--- NOTE | 2020-01-12 03:40 | NUR ---
JASON REID S admitted to room 411-1, with an admitting diagnosis of SEPSIS AND OVARYN CYST, on 01/12/20 from ER via , accompanied by ER HZEN. JASON REID introduced to surroundings, call light, bed controls, phone, TV, temperature control, lights, meal times, smoking policy, visitor policy, side rail policy, bathrooms and showers. Patient Rights given to patient in the handbook. JASON REID verbalizes understanding that [facility] is not responsible for the loss or damage to any personal effects or valuables that are kept in the patients posession during their hospitalization. JASON REID verbalizes understanding of Interdisciplinary Patient Education. Patient and/or family were informed about the Rapid Response Team and its purpose.
[2020-01-12 03:48] VITALS: BP 128/70
[2020-01-12 04:00] VITALS: BP 128/70
[2020-01-12 05:19] LABS: BASOPHILS % (AUTO) 0 % (0-10); EOSINOPHILS # (AUTO) 0.2 10^3/uL (0.0-0.3); EOSINOPHILS % (AUTO) 2 % (0-10); HEMATOCRIT 36 % (35-52); HEMOGLOBIN 11.7 G/DL (11.5-16.0); LYMPHOCYTES # (AUTO) 2.9 X 10^3 (1.0-4.0); LYMPHOCYTES % (AUTO) 25 % (12-44); MEAN CORPUSCULAR HEMOGLOBIN 27 PG (25-34); MEAN CORPUSCULAR HGB CONC 33 G/DL (32-36); MEAN CORPUSCULAR VOLUME 83 FL (80-99); MEAN PLATELET VOLUME 9.3 FL (7.4-10.4); MONOCYTES # (AUTO) 1.1 X 10^3 (0.0-1.0); MONOCYTES % (AUTO) 9 % (0-12); NEUTROPHILS # (AUTO) 7.3 X 10^3 (1.8-7.8); NEUTROPHILS % (AUTO) 64 % (42-75); PLATELET COUNT 320 10^3/uL (130-400); WHITE BLOOD COUNT 11.4 10^3/uL (4.3-11.0)
[2020-01-12 05:35] LABS: ALBUMIN 3.3 GM/DL (3.2-4.5); CHLORIDE 105 MMOL/L (98-107); POTASSIUM 3.6 MMOL/L (3.6-5.0); SODIUM 137 MMOL/L (135-145)
[2020-01-12 05:37] LABS: CALCIUM 8.2 MG/DL (8.5-10.1)
[2020-01-12 05:38] LABS: GLUCOSE 90 MG/DL (70-105); TOTAL PROTEIN 5.7 GM/DL (6.4-8.2)
[2020-01-12 05:39] LABS: CARBON DIOXIDE 23 MMOL/L (21-32)
[2020-01-12 05:40] LABS: BILIRUBIN,TOTAL 0.8 MG/DL (0.1-1.0)
[2020-01-12 05:41] LABS: ALKALINE PHOSPHATASE 88 U/L (40-136); CREATININE SERUM 0.65 MG/DL (0.60-1.30); GFR ESTIMATED > 60
[2020-01-12 05:42] LABS: BUN/CREATININE RATIO 17
[2020-01-12 05:44] LABS: ALANINE AMINOTRANSFERASE 13 U/L (0-55)
[2020-01-12] MEDS ORDERED: fentaNYL INJECTION 100 MCG/2 ML AMP IV PRN (05:45)
[2020-01-12] MEDS ORDERED: PROMETHAZINE INJ 25 MG/ML (PHENERGAN) AMP IV PRN (05:45)
[2020-01-12] MEDS ORDERED: KETOROLAC 15 MG/ML VIAL IV PRN (05:45)
[2020-01-12] MEDS ORDERED: ONDANSETRON 4 MG/2 ML (SDV) Z0FRAN IV PRN ×3 (05:45→17:45)
[2020-01-12] MEDS ORDERED: morphine INJ 10 MG/ML 1ML (SYR OR VIAL) IV PRN (05:45)
[2020-01-12] MEDS ORDERED: PIPERACILLIN/TAZO 4.5 GM VIAL (ZOSYN) IV ONE (05:55)
[2020-01-12] MEDS ORDERED: NS (IVPB) 100 ML ONE (05:56)
--- NOTE | 2020-01-12 05:56 | Diagnostic Imaging Report ---
EXAMINATION: Chest 1 view HISTORY: Evaluate central line. COMPARISON: None available. FINDINGS: A right internal jugular central line is seen with the tip overlying the low SVC. The lung volumes are normal. No focal consolidation is seen. No large pleural effusion or pneumothorax is seen. The cardiomediastinal silhouette is normal in size and contour. No acute osseous abnormality is seen. IMPRESSION: 1. Right internal jugular central line with the tip overlying the low SVC. No pneumothorax. Dictated by: Dictated on workstation # [id number]
[2020-01-12] MEDS: LACTATED RINGERS 1,000 ML IV SCH ×4 (06:18→18:08)
[2020-01-12] MEDS: PIPERACILLIN/TAZO 4.5 GM/NS 100 ML IV SCH ×6 (06:22→22:03)
--- NOTE | 2020-01-12 06:47 | Diagnostic Imaging Report ---
EXAMINATION: CT Abdomen and Pelvis with intravenous contrast. TECHNIQUE: Multiple contiguous axial images were obtained through the abdomen and pelvis after the uneventful administration of intravenous contrast. All CT scans use one or more of the following dose optimizing techniques: automated exposure control, MA and/or KvP adjustment based on a patient size and exam type, or iterative reconstruction. HISTORY: Right lower quadrant pain. COMPARISON: CT abdomen and pelvis on 12/21/2019. FINDINGS: The heart is unremarkable. The included lung bases are clear. The liver, spleen, pancreas, adrenal glands, and kidneys have a normal appearance. There is no pathologically enlarged mesenteric or retroperitoneal adenopathy. The bowel loops are nondilated. The appendix is surgically absent. Diverticuli are seen in the sigmoid colon without evidence of acute diverticulitis. There is no free fluid or free air. No acute osseous abnormalities. Ureters and bladder are normal. A prominent cyst is seen in the right ovary measuring 3.1 x 3.8 cm. There is no free air, loculated collection, or adenopathy in the pelvis. IMPRESSION: 1. Prominent cyst in the right ovary measuring 3.8 x 3.1 cm. If indicated, consider further evaluation with pelvic ultrasound. 2. Diverticuli in the sigmoid colon without evidence of acute diverticulitis. Agree with overnight report. Dictated by: Dictated on workstation # [id number]
[2020-01-12 08:00] VITALS: BP 95/61
--- NOTE | 2020-01-12 11:47 | NUR ---
CM/SS: Visited with pt as to plan for discharge Plan: Pt is from home and will return there with no identified services Summary: Pt reports not being able to afford her medications that were previously called in. Pt reports they were $116.00 and she did not have the money so she was only able to sheepskin pickler one of the medications. Pt reports not having a primary care physician. [facility] services are discussed. This worker will follow up. Addendum: 01/12/20 at 1527 by BRIAN KENDRICK SS CM/SS: Returned to visit pt. She remains in bed resting. Discussed with pt as to her needing to obtain a physician. Discussed [facility]. She is open to going there and reports she feels as if she would be able to get to an appointment. She reports having a friend that could transport her to the [facility]. if needed. Pt reports she likes to lay in bed when she is having pain.This worker shares with pt that an appointment will be made for her after discharge she would be encouraged to attend. This worker will follow up.
[2020-01-12 12:00] VITALS: BP 109/71
--- NOTE | 2020-01-12 12:27 | NUR ---
SPOKE WITH THE PT TO COMPLETE THE MED REC PT DENIES TAKING ANY PRESCRIPTION OR OTC MEDS- SHE WAS GIVEN ANTIBIOTICS AT HER LAST ED VISIT (PT ONLY PICKED UP DOXYCYCLINE DUE TO THE COST) AND SHE HAS COMPLETED THE THERAPY
--- NOTE | 2020-01-12 13:53 | History & Physical-Hospitalist ---
History of Present Illness HPI/Chief Complaint Becky Helton is a 39-year-old female who presented with right lower quadrant pain. She reports that the pain is sharp and constant. She denies any radiation. She denies any fevers or chills. She denies any chest pain. She denies any shortness of breath or cough. She denies any nausea or vomiting. She denies any diarrhea. She has had some constipation. She he was recently seen in the emergency room and was started on antibiotics for a ruptured cyst. She was started on 2 antibiotics that she can only afford one of them. She was supposed to have an appointment with Saray Garber at [facility] but has not yet established care. Source: patient Exam Limitations: no limitations Date Seen 01/12/20 Time Seen by a Provider: 08:50 Attending Physician Keyla Carpenter DO PCP No,Local Physician Referring Physician Date of Admission Jan 12, 2020 at 02:45 Home Medications & Allergies Home Medications Reviewed patient Home Medication Reconciliation performed by pharmacy medication reconciliations materials technician and/or nursing. Patients Allergies have been reviewed. Allergies Allergies Coded Allergies No Known Drug Allergies (Unverified12/21/19) Past Gihwwsy-Qafbdc-Rbqazi Hx Past Med/Social Hx: Reviewed Nursing Past Med/Soc Hx Patient Social History Alcohol Use: Denies Use Recreational Drug Use: Yes Drug of Choice: smokes Meth, cannabis Smoking Status: Current Everyday Smoker Type Used: Cigarettes 2nd Hand Smoke Exposure: Yes Recent Foreign Travel: No Contact w/other who traveled: No Recent Hopitalizations: No Recent Infectious Disease Expo: No Seasonal Allergies Seasonal Allergies: No Past Medical History Surgeries: Appendectomy Female Reproductive Disorders: Ovarian Cyst History of Blood Disorders: No Review of Systems Constitutional: no symptoms reported EENTM: no symptoms reported Respiratory: no symptoms reported Cardiovascular: no symptoms reported Gastrointestinal: abdominal pain (RLQ), constipation Genitourinary: decreased output Musculoskeletal: no symptoms reported Skin: no symptoms reported Psychiatric/Neurological: No Symptoms Reported Physical Exam Physical Exam Vital Signs Vital Signs - First Documented 01/11/20 19:47 Temp 36.5 Pulse 113 Resp 20 B/P (MAP) 158/103 (121) Pulse Ox 98 O2 Delivery Room Air Capillary Refill : Less Than 3 SecondsLess Than 3 Seconds Height, Weight, BMI Height: '" Weight: lbs. oz. kg; 35.70 BMI Method: General Appearance: No Apparent Distress, WD/WN HEENT: PERRL/EOMI, Pharynx Normal Neck: Normal Inspection, Supple Respiratory: Lungs Clear, Normal Breath Sounds, No Respiratory Distress Cardiovascular: Regular Rate, Rhythm, No Edema, No Murmur Gastrointestinal: Normal Bowel Sounds, Soft, Tenderness (right lower quadrant) Extremity: Normal Inspection, Non Tender, No Pedal Edema Neurologic/Psychiatric: Alert, Oriented x3, No Motor/Sensory Deficits, Normal Mood/Affect Skin: Normal Color, Warm/Dry Results Results/Procedures Labs Laboratory Tests 01/11/20 21:50 01/12/20 05:00 Patient resulted labs reviewed. Imaging: Reviewed Imaging Report Assessment/Plan Admission Diagnosis ovarian cyst Admission Status: Inpatient Order (span 2 midnights) Reason for Inpatient Admission: abdominal pain due to ovarian cyst requiring further evaluation and treatment Assessment and Plan Abdominal pain Ovarian cyst Possible urinary tract infection CT revealed prominent right ovarian cyst Gynecology consulted, appreciate assistance Transvaginal ultrasound ordered Urinalysis revealed possible urinary tract infection Urine culture pending Started on Zosyn Pain regimen in place Add bowel regimen Methamphetamine abuse Cannabis abuse Recommend cessation Social work consulted, appreciate assistance Nicotine dependence, cigarettes, uncomplicated Nicotine patch DVT prophylaxis: Lovenox Diagnosis/Problems Diagnosis/Problems (1) Ovarian cyst Status: Acute Qualifiers: Laterality: right Qualified Codes: N83.201 - Unspecified ovarian cyst, right side (2) Urinary tract infection Status: Acute (3) Methamphetamine abuse Status: Acute (4) Nicotine dependence, cigarettes, uncomplicated Status: Chronic (5) Obesity (BMI 30-39.9) Status: Chronic Clinical Quality Measures DVT/VTE Risk/Contraindication: Risk Factor Score Per Nursin RFS Level Per Nursing on Admit: 1=Low/No VTE PPX ANTONELLA BALLESTEROS MD Jan 12, 2020 13:52
[2020-01-12] MEDS ORDERED: ENOXAPARIN 40 MG/0.4 ML (LOVENOX) SYR SC SCH (14:00)
[2020-01-12] MEDS ORDERED: ANTACID SUSP 30 ML UDC (MYLANTA) PO PRN (14:00)
[2020-01-12] MEDS ORDERED: BISACODYL 10 MG SUPP (DULCOLAX) PR PRN (14:00)
[2020-01-12] MEDS ORDERED: polyethylene glycoL POWDER 17 GM (MIRALAX) PACK PO PRN (14:00)
[2020-01-12] MEDS ORDERED: ACETAMINOPHEN 325 MG TABLET PO PRN (14:00)
[2020-01-12] MEDS ORDERED: NICOTINE 14 MG (NICODERM) PATCH TD ONE (14:00)
[2020-01-12] MEDS ORDERED: MELATONIN 3 MG TABLET PO PRN (14:00)
[2020-01-12] MEDS ORDERED: ONDANSETRON 4 MG (ZOFRAN) ORAL DISSOLVE TAB PO PRN (14:00)
[2020-01-12] MEDS ORDERED: diphenhydrAMINE 25 MG TAB (BENADRYL) PO PRN (14:00)
--- NOTE | 2020-01-12 14:25 | NUR ---
OXYIR 10 PO FOR PAIN.
[2020-01-12 15:10] VITALS: BP 113/70
--- NOTE | 2020-01-12 16:59 | Diagnostic Imaging Report ---
PROCEDURE: US Non-ob pelvis comp/trans. TECHNIQUE: Multiple realtime grayscale images were obtained of the pelvis in various projections endovaginally. Transabdominal imaging was also performed. INDICATION: Ovarian abscess. COMPARISON: 12/21/2019. FINDINGS: The uterus is normal in size. The endometrium is normal in thickness measuring 8 mm. There is a small amount of endometrial fluid. No yolk sac or pole is seen. The patient denied possibility of on the prior CT. No significant free fluid is identified. The right ovary measures 6.1 x 3.8 x 4.2 cm. There is a 3.6 x 3.5 x 3.0 cm complex cystic structure at the right ovary which has appearance of a hemorrhagic cyst. Adjacent to this, there is a similar heterogeneous region measuring 3.4 x 2.0 x 2.9 cm, which could represent an additional hemorrhagic cyst. Blood flow is present. The left ovary measures 4.7 x 2.5 x 3.6 cm. Vascularity appears normal. There appears to be a small dominant follicle measuring 1.8 cm. IMPRESSION: 1. Two complex cystic structures of the right ovary, most likely hemorrhagic cysts, although infection is not excluded. No distention suggestive of distended fallopian tubes is seen. No ovarian torsion is seen. 2. Small amount of endometrial fluid, most likely blood products. No pole or yolk sac is seen. Dictated by: Dictated on workstation # [id number]
[2020-01-12 19:13] VITALS: BP 120/78
[2020-01-12] MEDS: SENNOSIDES 8.6 MG (SENOKOT) TAB PO SCH (22:00)
[2020-01-12] MEDS: DOCUSATE SODIUM 100 MG (COLACE) CAP PO SCH (22:15)
[2020-01-13 00:25] VITALS: BP 107/68
[2020-01-13] MEDS: LACTATED RINGERS 1,000 ML IV SCH ×2 (00:53→08:17)
[2020-01-13 04:00] VITALS: BP 119/67
[2020-01-13] MEDS: PIPERACILLIN/TAZO 4.5 GM/NS 100 ML IV SCH ×2 (05:47)
[2020-01-13 06:07] LABS: BASOPHILS % (AUTO) 0 % (0-10); EOSINOPHILS # (AUTO) 0.1 10^3/uL (0.0-0.3); EOSINOPHILS % (AUTO) 1 % (0-10); HEMATOCRIT 34 % (35-52); HEMOGLOBIN 11.2 G/DL (11.5-16.0); LYMPHOCYTES # (AUTO) 1.9 X 10^3 (1.0-4.0); LYMPHOCYTES % (AUTO) 17 % (12-44); MEAN CORPUSCULAR HEMOGLOBIN 28 PG (25-34); MEAN CORPUSCULAR HGB CONC 33 G/DL (32-36); MEAN CORPUSCULAR VOLUME 83 FL (80-99); MEAN PLATELET VOLUME 9.4 FL (7.4-10.4); MONOCYTES # (AUTO) 0.9 X 10^3 (0.0-1.0); MONOCYTES % (AUTO) 8 % (0-12); NEUTROPHILS # (AUTO) 8.1 X 10^3 (1.8-7.8); NEUTROPHILS % (AUTO) 73 % (42-75); PLATELET COUNT 265 10^3/uL (130-400)
[2020-01-13 07:15] VITALS: BP 132/71
[2020-01-13] MEDS: SENNOSIDES 8.6 MG (SENOKOT) TAB PO SCH (08:18)
[2020-01-13] MEDS: DOCUSATE SODIUM 100 MG (COLACE) CAP PO SCH (08:24)
--- NOTE | 2020-01-13 08:32 | History & Physical ---
History and Physical Date Seen by Provider: Jan 13, 2020 Time Seen by Provider: 08:22 Gynecology service consult note reason for consultation-pelvic pain and ovarian cysts History of present illness patient is a 39-year-old white female who is admitted via the emergency department 2 days ago secondary to aggressively se evelin right sided pain/right lower quadrant pain. This patient had been seen for similar symptoms several weeks earlier prescribed antibiotics which she only took partially. 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 Evaluation in the ED included a CT that showed a small amount of pelvic fluid and complex appearing right ovarian cysts. Patient was admitted with diagnosis of PID and started empirically on antibiotics. She reports that since admission she does feel like she has improved although she is requiring pain medication. transvaginal ultrasound confirmed CT finding of ovarian cyst on the right concerning for hemorrhagic cyst versus, other etiologies including PID Currently the patient denies pain other than a dull ache in her pelvis. She has had problems with bleeding in the past is currently on Provera 10 mg a day and reports some occasional spotting. Patient denies nausea vomiting. Denies bowel or bladder issues Allergies are none Medications on admission included doxycycline, Lorcet, Provera, and Flagyl Social history she smokes 2 does use recreational drugs she denies alcohol use Family history is noncontributory Review of systems as per the history of present illness Laboratory Tests Test 01/12/20 11:50 01/13/20 05:45 Range/Units Glucometer 96 70-110 MG/DL White Blood Count 11.0 4.3-11.0 10^3/uL Red Blood Count 4.02 L 4.35-5.85 10^6/uL Hemoglobin 11.2 L 11.5-16.0 G/DL Hematocrit 34 L 35-52 % Mean Corpuscular Volume 83 80-99 FL Mean Corpuscular Hemoglobin 28 25-34 PG Mean Corpuscular Hemoglobin Concent 33 32-36 G/DL Red Cell Distribution Width 13.2 10.0-14.5 % Platelet Count 265 130-400 10^3/uL Mean Platelet Volume 9.4 7.4-10.4 FL Neutrophils (%) (Auto) 73 42-75 % Lymphocytes (%) (Auto) 17 12-44 % Monocytes (%) (Auto) 8 0-12 % Eosinophils (%) (Auto) 1 0-10 % Basophils (%) (Auto) 0 0-10 % Neutrophils # (Auto) 8.1 H 1.8-7.8 X 10^3 Lymphocytes # (Auto) 1.9 1.0-4.0 X 10^3 Monocytes # (Auto) 0.9 0.0-1.0 X 10^3 Eosinophils # (Auto) 0.1 0.0-0.3 10^3/uL Basophils # (Auto) 0.0 0.0-0.1 10^3/uL lab work is reviewed and shows white count was decreasing after admission Gen. the patient is a well-developed well-nourished overweight white female she is currently in no acute distress HEENT exam is normal Neck is supple Abdomen is benign Pelvic exam is deferred CT and ultrasound were reviewed and consistent with ovarian cyst. Possibility of PID is not excluded However the findings would be consistent with physiologic cysts as well assessment and plan pelvic pain episodically severe that seems to be improving with a white count that is improving as well. This patient does not appear to have an acute abdomen or require immediate intervention in regard to the ultrasound and CT findings. I think it was appropriate to follow-up in clinic repeat evaluation of the ovary/ovarian cyst and also for routine gynecologic follow-up including a Pap smear and evaluation for her menorrhagia. evaluation for GC and chlamydia is still pending. If positive definitive treatment would be indicated I would recommend follow-up in clinic after discharge and I would be happy to see her in my clinic. I am available if I can be of further assistance Allergies and Home Medications Allergies Coded Allergies: No Known Drug Allergies (Unverified , 12/21/19) Home Medications No Active Prescriptions or Reported Meds Patient Home Medication List Home Medication List Reviewed: No Clinical Quality Measures DVT/VTE Risk/Contraindication: Risk Factor Score Per Nursin RFS Level Per Nursing on Admit: 1=Low/No VTE PPX AYLIN BUNCH MD Jan 13, 2020 08:32
[2020-01-13] MEDS ORDERED: NICOTINE 14 MG (NICODERM) PATCH TD SCH (09:00)
[2020-01-13] MEDS ORDERED: NICOTINE PATCH REMOVAL TP SCH (09:00)
--- NOTE | 2020-01-13 10:47 | NUR ---
CM/SS: Visit with pt as to plan for discharge Plan: Pt will discharge to home with no identified services and have follow up appt for her medical needs and getting established with physician as well as with Dr. Valdovinos. Summary: Pt is aware that she will be leaving today. Pt reports that she is feeling a little bit better. Pt is reminded about her appointment for getting a physician established. Pt verbalizes understanding about making the appt. Pt will also have an appt with Dr. Valdovinos. Pt does report she has a ride and she can call them when she is ready to be picked up. Pt is wished well.
[2020-01-13] MEDS ORDERED: OXYC-471 PO (10:54)
--- NOTE | 2020-01-13 12:11 | NUR ---
JASON REID Garth demonstrates understanding of discharge instructions and accurately returns instructions upon questioning. Copy of Post-Discharge Instructions and Medication Discharge Instructions given to patient. JASON REID Garth is able to manage continuing needs after discharge. Patients belongings returned to patient. Skin dry and intact; no breakdown noted. Patient discharged from [facility] on 01/13/20 at 1200 . JASON REID Garth left floor via wheelchair, accompanied by RAJNI Soto.
--- NOTE | 2020-01-13 13:07 | Discharge Summary ---
Discharge Summary Hospital Course Was the Problem List Reviewed?: Yes Problems/Dx: (1) Ovarian cyst Status: Acute Qualifiers: Qualified Codes: N83.201 - Unspecified ovarian cyst, right side (2) Methamphetamine abuse Status: Acute (3) Nicotine dependence, cigarettes, uncomplicated Status: Chronic (4) Obesity (BMI 30-39.9) Status: Chronic Hospital Course Date of Admission: Jan 12, 2020 at 02:45 Admission Diagnosis : Abdominal pain Family Physician/Provider: Linda,Local Physician Date of Discharge: 01/13/20 Discharge Diagnosis: Ovarian cyst Hospital Course: Becky Helton is a 39-year-old female who presented with abdominal pain and was admitted with an ovarian cyst. She underwent a CT scan and transvaginal u ltrasound which revealed a right ovarian cyst. There is no evidence of abscess. She remained afebrile and the had a normal white blood cell count. She had a pending chlamydia, gonorrhea, and urine culture the time of discharge. She will follow-up with Dr. Valdovinos for ovarian cyst. She will establish care with Dr. Riggs for primary care. Labs and Pending Lab Test: Laboratory Tests 01/13/20 05:45: White Blood Count 11.0, Red Blood Count 4.02L, Hemoglobin 11.2L, Hematocrit 34L, Mean Corpuscular Volume 83, Mean Corpuscular Hemoglobin 28, Mean Corpuscular Hemoglobin Concent 33, Red Cell Distribution Width 13.2, Platelet Count 265, Mean Platelet Volume 9.4, Neutrophils (%) (Auto) 73, Lymphocytes (%) (Auto) 17, Monocytes (%) (Auto) 8, Eosinophils (%) (Auto) 1, Basophils (%) (Auto) 0, Neutrophils # (Auto) 8.1H, Lymphocytes # (Auto) 1.9, Monocytes # (Auto) 0.9, Eosinophils # (Auto) 0.1, Basophils # (Auto) 0.0 Microbiology 01/12/20 Urine Culture - Preliminary, Resulted Gram Negative Bayron 01/11/20 Blood Culture - Preliminary, Resulted No growth Home Meds Active Oxycodone-Acetaminophen 5-325 (Oxycodone HCl/Acetaminophen) 1 Each Tablet 1 Each PO Q4H PRN MDD 6 5 Days Assessment/Pt Instructions take medications as prescribed. Follow up with Dr. Valdovinos, AERIAL ADVERTISER. Establish care with a primary care physician, Dr. Riggs. Discharge Planning: <30 minutes discharge planning Discharge Instructions Discharge Diet: No Restrictions Activity as Tolerated: Yes Discharge Physical Examination Vital Signs Vital Signs Date Time Temp Pulse Resp B/P (MAP) Pulse Ox O2 Delivery O2 Flow Rate FiO2 01/13/20 08:00 96 Room Air 01/13/20 07:15 36.5 78 18 132/71 (91) General Appearance: No Apparent Distress, WD/WN HEENT: PERRL/EOMI, Pharynx Normal Respiratory: Lungs Clear, Normal Breath Sounds, No Respiratory Distress Cardiovascular: Regular Rate, Rhythm, No Edema, No Murmur Gastrointestinal: Normal Bowel Sounds, Non Tender, Soft Extremity: Normal Inspection, Non Tender, No Pedal Edema Skin: Normal Color, Warm/Dry Neurologic/Psychiatric: Alert, Oriented x3, No Motor/Sensory Deficits, Normal Mood/Affect Allergies: Coded Allergies: No Known Drug Allergies (Unverified , 12/21/19) Copy Copies To 1: ROMAN RIGGS MD Discharge Summary Date of Admission Jan 12, 2020 at 02:45 Date of Discharge Jan 13, 2020 at 12:00 Discharge Date: Jan 13, 2020 Discharge Time: 12:00 Admission Diagnosis ovarian cyst Discharge Diagnosis Abdominal pain Ovarian cyst (1) Ovarian cyst Status: Acute Qualifiers: Qualified Codes: N83.201 - Unspecified ovarian cyst, right side (2) Methamphetamine abuse Status: Acute (3) Nicotine dependence, cigarettes, uncomplicated Status: Chronic (4) Obesity (BMI 30-39.9) Status: Chronic Clinical Quality Measures DVT/VTE Risk/Contraindication: Risk Factor Score Per Nursin RFS Level Per Nursing on Admit: 1=Low/No VTE PPX ANTONELLA BALLESTEROS MD Jan 13, 2020 13:07
[2020-01-13] MEDS ORDERED: CEFD300C3 PO (13:08)
--- NOTE | 2020-01-19 10:50 | Physician Query Clarification ---
PQ-Uncertain Diagnosis Admission/Discharge Admission Date: Jan 12, 2020 at 02:45 Discharge Date: Jan 13, 2020 at 12:00 Dr. Ballesteros, The medical record reflects the following clinical scenario: History/Risk Factors: Rt. ovarian cyst Clinical Findings: RLQ pain, pressure with urination, UA- large bacteria, + nitrates, slightly cloudy, Urine culture - Source: URINE / CLEAN CATCH Order Location: Emergency Room - [place] Organism 1 Mixed Bacterial Charisse 50,000 CFU/ML WITH Organism 2 Escherichia coli . PREDOMINANT SUSCEPTIBILITY REPORTED [id number] PRELIM RAPID ID TEST AT [facility] 01/12 10:55 RML CONFIRMED ID 01/12 15:05 Esc coli INTERP AMPICILLIN R GENTAMICIN S CEFAZOLIN S CEFTRIAXONE S AMOX/CLAV S TRIMETH/SULFA R LEVOFLOXACIN R CIPROFLOXACIN R MEROPENEM S NITROFURANTOIN S Treatment: IV Piperacillin Question: Is UTI a clinically valid diagnosis? UTI was documented in the H&P with no further documentation in the medical record. Please document a response in Progress Note or Discharge Summary. 1. Yes, clinically valid, condition resolved. 2. No, condition ruled out. 3. Other, with explanation of clinical findings. 4. Undetermined, no explanation for clinical findings. PHYSICIAN RESPONSE Diagnosis clinically valid: No, conditon ruled out Please remember a lack of response to the above will prompt a phone page by CDI/Coding staff. In responding to this query, please exercise your independent professional judgment. The purpose of this communication is to more accurately reflect the complexity of your patients condition. The fact that a question is asked does not imply that any particular answer is desired or expected. Thank you for your timely response to this clarification. Requestors name: Elsi THIS PHYSICIAN QUERY FORM IS A PERMANENT PART OF THE MEDICAL RECORD ELSI FRYE Jan 19, 2020 10:50 ANTONELLA BALLESTEROS MD Jan 25, 2020 15:52
--- NOTE | 2020-01-19 10:56 | Physician Query Clarification ---
PQ-Conflicting Diagnosis Admission/Discharge Admission Date: Jan 12, 2020 at 02:45 Discharge Date: Jan 13, 2020 at 12:00 Dr. Ballesteros, The medical record reflects the following clinical scenario: History/Risk Factors: Rt. ovarian cyst Clinical Findings: P 113, R 20, BP 158/103, WBC 13.9, Lactic 0.75 Treatment: IV Piperacillin Question: Do you agree with the impression of the Sepsis per Dr. Toro. Please document a response in Progress Note or Discharge Summary. 1. Yes 2. No 3. Other, with explanation of clinical findings 4. Clinically undetermined, no explanation for clinical findings. PHYSICIAN RESPONSE Do you agree w/Consulting Dx?: No Please remember a lack of response to the above will prompt a phone page by CDI/Coding staff. In responding to this query, please exercise your independent professional judgment. The purpose of this communication is to more accurately reflect the complexity of your patients condition. The fact that a question is asked does not imply that any particular answer is desired or expected. Thank you for your timely response to this clarification. Requestors name: Gilbert THIS PHYSICIAN QUERY FORM IS A PERMANENT PART OF THE MEDICAL RECORD GILBERT FRYE Jan 19, 2020 10:56 ANTONELLA BALLESTEROS MD Jan 25, 2020 15:52
== END 2020-01-13 12:00 | disposition home or self-care (01) | DRG 761 ==
LOC: EDUNIT# 19:42 → ER 19:43 → 4TH 01-12 02:45
PROVIDERS: ADMIT Internal Medicine; ATTEND Internal Medicine
PROC: 02HV33Z Insertion of Infusion Device into Superior Vena Cava, Percutaneous Approach (ICD-10-PCS; principal; 2020-01-11)
DX: N83.201 Unspecified ovarian cyst, right side (principal); F15.10 Other stimulant abuse, uncomplicated; F12.10 Cannabis abuse, uncomplicated; F17.210 Nicotine dependence, cigarettes, uncomplicated; E66.9 Obesity, unspecified; Z68.35 Body mass index [BMI] 35.0-35.9, adult
CPT/HCPCS: 36415; 71045; 74177; 76830; 76856; 80053; 80306; 81000; 82550; 82962; 83605; 83690; 84703; 85025; 85610; 85730; 86141; 87040; 87077; 87088; 87186; 87491; 87591; 96361; 96365; 96375

== ENCOUNTER 2020-09-30 02:10 | Emergency (ER) | payer SELFPAY ==
[~2020-09-30] VITALS: Ht 175.3 cm; Wt 90.7 kg
[~2020-09-30 02:10] MED LIST changes: +ACHD5005 PO; +CEFD300C3 PO; +DOXY100T31 PO; +ONDA4TAB11 PO; +OXYC1TAB11 PO
--- NOTE | 2020-09-30 02:28 | ED Chest Pain ---
General Stated Complaint: CP,LEFT SIDE NUMB Source: patient Exam Limitations: no limitations History of Present Illness Date Seen by Provider: September 30, 2020 Time Seen by Provider: 02:10 Initial Comments Patient presents ER by private conveyance with her significant other chief complaint that she started experiencing some left-sided paresthesias and and numbness on the left side of her face jaw neck and upper arm around 1930 last night. Then she started having some pressure and chest pain that presently is rated a 4 out of 10 in her left chest. She is also having a couple bouts of nausea but none right now. She has no history of heart disease. No trauma. She says they were out fishing when this happened. She states she took some ibuprofen and Benadryl and her significant other says he gave her 250 mg of Benadryl, some ibuprofen and 2 tablets of aspirin at midnight. She did not receive any relief from this. Do not take anything else. She does not have any known medical history nor did she follow with a doctor. She denies a history of hypertension, hyperlipidemia,'s diabetes. She smokes about a pack cigarettes per day. Denies a family history of early onset coronary disease. Allergies and Home Medications Allergies Coded Allergies: No Known Drug Allergies (Unverified , 12/21/19) Home Medications Cefdinir 300 Mg Capsule, 300 MG PO BID Prescribed by: ANTONELLA BALLESTEROS on 01/13/20 1308 Oxycodone HCl/Acetaminophen 1 Each Tablet, 1 EACH PO Q4H PRN for PAIN-SEVERE Prescribed by: ANTONELLA BALLESTEROS on 01/13/20 1054 Patient Home Medication List Home Medication List Reviewed: Yes Review of Systems Review of Systems Constitutional: No chills, No diaphoresis EENTM: No Blurred Vision, No Double Vision Respiratory: Denies Cough, Denies Shortness of Air Cardiovascular: See HPI, Chest Pain; Denies Lightheadedness Gastrointestinal: Denies Constipated, Denies Diarrhea, Denies Nausea Genitourinary: Denies Burning, Denies Discharge Musculoskeletal: No back pain, No joint pain All Other Systems Reviewed Negative Unless Noted: Yes Past Qycaetr-Ikzreo-Udipgn Hx Patient Social History Alcohol Use: Occasionally Uses Drug of Choice: smokes Meth, cannabis Smoking Status: Current Everyday Smoker Type Used: Cigarettes 2nd Hand Smoke Exposure: Yes Recent Hopitalizations: No Seasonal Allergies Seasonal Allergies: No Past Medical History Surgeries: Yes Appendectomy Respiratory: No Cardiac: No Neurological: No Female Reproductive Disorders: Ovarian Cyst Genitourinary: No Gastrointestinal: No Musculoskeletal: No Endocrine: No HEENT: No Cancer: No Psychosocial: No Integumentary: No Blood Disorders: No Physical Exam Vital Signs Vital Signs - First Documented 09/30/20 09/30/20 02:10 03:07 Temp 36.3 Pulse 84 Resp 20 B/P (MAP) 156/98 (117) Pulse Ox 100 O2 Delivery Room Air Capillary Refill : Height, Weight, BMI Height: '" Weight: lbs. oz. kg; 35.70 BMI Method: General Appearance: No Apparent Distress, WD/WN HEENT: PERRL/EOMI, Pharynx Normal, Moist Mucous Membranes Neck: Full Range of Motion, Normal Inspection Respiratory: Chest Non Tender, Lungs Clear, Normal Breath Sounds, No Accessory Muscle Use, No Respiratory Distress Cardiovascular: Regular Rate, Rhythm, Normal Peripheral Pulses Gastrointestinal: Normal Bowel Sounds, Non Tender, Soft Extremity: Normal Capillary Refill, Normal Inspection, No Pedal Edema Neurologic/Psychiatric: Alert, Oriented x3 Skin: Normal Color, Warm/Dry Progress/Results/Core Measures Results/Orders My Orders Orders - CASSANDRA CASE Continuous Ekg Monitoring (09/30/20 02:13) Ekg Tracing (09/30/20 02:13) Cbc With Automated Diff (09/30/20 02:24) Magnesium (09/30/20 02:24) Ekg Tracing (09/30/20 02:24) Comprehensive Metabolic Panel (09/30/20 02:24) Myoglobin Serum (09/30/20 02:24) Protime With Inr (09/30/20 02:24) Partial Thromboplastin Time (09/30/20 02:24) O2 (09/30/20 02:24) Monitor-Rhythm Ecg Trace Only (09/30/20 02:24) Ed Iv/Invasive Line Start (09/30/20 02:24) Troponin I (09/30/20 02:24) Nitroglycerin 0.4 Mg Btl 25's (Nitrostat (09/30/20 02:30) Aspirin Chewable Tablet (Baby Aspirin Ch (09/30/20 02:30) Ed Iv/Invasive Line Start (5/22/21 02:24) Lactated Ringers (Lr 1000 Ml Iv Solution (09/30/20 02:30) Ua Culture If Indicated (09/30/20 02:24) Urine Bedside (09/30/20 02:24) Alcohol (09/30/20 02:24) Vital Signs/I&O 09/30/20 09/30/20 02:10 03:07 Temp 36.3 Pulse 84 Resp 20 B/P (MAP) 156/98 (117) Pulse Ox 100 O2 Delivery Room Air Room Air Progress Progress Note : Time: 03:35 Progress Note Patient states she really did not want to come to the ER in the first place. Before we can get labs drawn she decided she was going to leave AGAINST MEDICAL ADVICE and go home. We encouraged her to follow-up with her primary care doctor. We did discuss that we were not able to complete a work-up to rule out all dangerous life-threatening possible outcomes. Patient stated she understands this and was not upset and just wanted to go home. We encouraged her to return to the ER if she had worsening symptoms. Initial ECG Impression Date: September 30, 2020 Initial ECG Impression Time: 02:15 Initial ECG Rate: 82 Initial ECG Rhythm: Normal Sinus Initial ECG Intervals: Normal Initial ECG Impression: Normal Initial ECG Comparisson: No Previous ECG Available Comment Normal sinus rhythm without clinically relevant ST elevation or depression. Departure Impression Primary Impression: Chest pain Qualified Codes: R07.9 - Chest pain, unspecified Disposition: 07 AGAINST MEDICAL ADVICE Condition: Against Medical Advice Departure-Patient Inst. Decision time for Depature: 03:00 Referrals: NO,LOCAL PHYSICIAN (PCP) Primary Care Physician Patient Instructions: Chest Pain (DC) Add. Discharge Instructions: Follow-up with your primary care doctor or return to the ER if you are continuing to have chest pain. CASSANDRA CASE September 30, 2020 02:28
[2020-09-30] MEDS ORDERED: NITROGLYCERIN 0.4 MG SL TABS BTL 25'S SL PRN (02:30)
[2020-09-30] MEDS: LACTATED RINGERS 1,000 ML IV ONE (02:55)
[2020-09-30] MEDS: ASPIRIN 81 MG CHEW (CHILDREN'S ASA) PO ONE (02:55)
[2020-09-30 03:07] VITALS: BP 156/98
== END 2020-09-30 02:55 | disposition left against medical advice (07) ==
LOC: EDUNIT# 02:10 → ER 02:12
DX: R07.9 Chest pain, unspecified (principal); F17.210 Nicotine dependence, cigarettes, uncomplicated
CPT/HCPCS: 93041

== ENCOUNTER 2020-10-09 06:10 | Emergency (ER) | payer SELFPAY | END 2020-10-09 06:32 | disposition left against medical advice (07) | LOC: EDUNIT# 06:10 → ER 06:12 | DX: R53.1 Weakness (principal) ==

== ENCOUNTER 2022-01-06 08:56 | Emergency (ER) | payer SELFPAY ==
[~2022-01-06] VITALS: Ht 172.7 cm; Wt 86.1 kg
[2022-01-06 09:46] LABS: BASOPHILS # (AUTO) 0.1 10^3/uL (0.0-0.1); BASOPHILS % (AUTO) 0 % (0-10); EOSINOPHILS # (AUTO) 0.3 10^3/uL (0.0-0.3); EOSINOPHILS % (AUTO) 2 % (0-10); HEMATOCRIT 43 % (35-52); HEMOGLOBIN 14.3 g/dL (11.5-16.0); LYMPHOCYTES # (AUTO) 2.7 10^3/uL (1.0-4.0); LYMPHOCYTES % (AUTO) 23 % (12-44); MEAN CORPUSCULAR HEMOGLOBIN 28 pg (25-34); MEAN CORPUSCULAR HGB CONC 34 g/dL (32-36); MEAN CORPUSCULAR VOLUME 83 fL (80-99); MEAN PLATELET VOLUME 9.1 fL (9.0-12.2); MONOCYTES # (AUTO) 0.9 10^3/uL (0.0-1.0); MONOCYTES % (AUTO) 8 % (0-12); NEUTROPHILS # (AUTO) 7.6 10^3/uL (1.8-7.8); NEUTROPHILS % (AUTO) 66 % (42-75); PLATELET COUNT 353 10^3/uL (130-400); WHITE BLOOD COUNT 11.5 10^3/uL (4.3-11.0)
--- NOTE | 2022-01-06 09:52 | ED Headache ---
General Chief Complaint: Head/Cervical Problems Stated Complaint: HEAD PAIN Nursing Triage Note: PT AMB TO [facility] 6 WITH COMPLAINTS OF HEAD PAIN/PRESSURE THAT STARTED AFTER THE November. PT STATES THAT THE PAIN FEELS LIKE A CRAMP AND MOVES TO DIFFERENT SPOTS ON HEAD. Source: patient Exam Limitations: no limitations History of Present Illness Date Seen by Provider: Jan 06, 2022 Time Seen by Provider: 09:05 Initial Comments This 41-year-old woman presents to the emergency room with complaints of severe headache daily for at least 6 weeks. She recalls first noticing it the week of November 12. Headache started on the right side and involved skin sensitivity and pulsating or shocking type bursts of pain. Pain then additionally migrated to the left. The pain on the left now is more of a pressure in the left parietal region. Currently the pain on the right side is focused more around the postauricular or mastoid sinus region. There is no significant tenderness to palpation in that area. No skin lesions are visible today. Today she is experiencing bilateral pain. She reports worsening of pain with certain movements or with lowering of the head either to bend down or lay down. She noted some ringlike lesions around her neck that started around the same time as the headaches and lasted about 1 week. She has had some tick bites early this summer. She believes they were small and brief. She denies associated symptoms such as vision change, speech difficulties, confusion, numbness or weakness, facial drooping, nausea, fever, cough, bowel or bladder dysfunction, etc. She is not accustomed to having significant headaches. She would occasionally have a minor headache prior to this episode but it was not a significant health problem for her. She denies any drug or alcohol use. She has no primary care provider and uses the [facility] walk-in clinic. Patient and significant other both report this has been a serious lifestyle issue for them. It is consuming her daily life and preventing her from doing normal daily activities. She is unable to participate in many maintenance activities around the house such as cleaning, cooking, etc. she has been sleeping excessively over the past 2 weeks. She has been taking only Tylenol for the pain. She takes no daily medications and denies any chronic medical problems. She was seen once in the clinic for this headache issue. She indicates it was thought to be primarily an ENT problem such as allergic rhinitis/sinusitis. She states that she was advised to use a nasal steroid spray. Hypertension with systolic blood pressure in the 150s and diastolic blood pressure in the 100s was noted during assessment. Allergies and Home Medications Allergies Coded Allergies: No Known Drug Allergies (Unverified , 12/21/19) Patient Home Medication List Home Medication List Reviewed: Yes Amlodipine Besylate (Amlodipine Besylate) 5 Mg Tablet, 5 MG PO DAILY Prescribed by: STEPHANIE HOLDER on 01/06/22 1159 Cefdinir (Cefdinir) 300 Mg Capsule, 300 MG PO BID Prescribed by: ANTONELLA BALLESTEROS on 01/13/20 1308 Doxycycline Hyclate (Doxycycline Hyclate) 100 Mg Tablet, 100 MG PO BID Prescribed by: STEPHANIE HOLDER on 01/06/22 1159 Oxycodone HCl/Acetaminophen (Oxycodone-Acetaminophen 5-325) 1 Each Tablet, 1 EACH PO Q4H PRN for PAIN-SEVERE Prescribed by: ANTONELLA BALLESTEROS on 01/13/20 1054 Review of Systems Review of Systems Constitutional: no symptoms reported Eyes: No Symptoms Reported Ears, Nose, Mouth, Throat: no symptoms reported Respiratory: no symptoms reported Cardiovascular: no symptoms reported Gastrointestinal: no symptoms reported Genitourinary: no symptoms reported : No Musculoskeletal: no symptoms reported Skin: see HPI Psychiatric/Neurological: See HPI Past Guulnar-Qmlqnr-Pwuvfx Hx Patient Social History Tobacco Use?: Yes Tobacco type used: Cigarettes Smoking Status: Current Everyday Smoker Substance use?: Yes Substance type: Marijuana Alcohol Use?: No Pt feels they are or have been: No Immunizations Up To Date Influenza Vaccine Up-to-Date: No; Not Current Seasonal Allergies Seasonal Allergies: No Past Medical History Surgeries: Yes (LEEP) Appendectomy Respiratory: No Cardiac: No Neurological: No : No Reproductive Disorders: Yes (Cervical dysplasia status post LEEP) Female Reproductive Disorders: Ovarian Cyst Genitourinary: No Gastrointestinal: No Musculoskeletal: No Endocrine: No HEENT: No Cancer: No Psychosocial: No Integumentary: No Blood Disorders: No Physical Exam Vital Signs Vital Signs - First Documented 01/06/22 09:01 Temp 36.0 Pulse 105 Resp 16 B/P (MAP) 145/90 (108) Pulse Ox 98 O2 Delivery Room Air Capillary Refill : Less Than 3 Seconds Height, Weight, BMI Height: '" Weight: lbs. oz. kg; 28.00 BMI Method: General Appearance: WD/WN, mild distress, obese HEENT: PERRL/EOMI, normal ENT inspection, TMs normal Neck: non-tender, full range of motion, supple, normal inspection, other (No muscle tension or tenderness noted in the neck) Cardiovascular: regular rate, rhythm, no edema, no murmur Respiratory: lungs clear, normal breath sounds, no respiratory distress Gastrointestinal: non tender, soft Extremities: non-tender, normal inspection, no pedal edema Psychiatric: alert, oriented x 3 Crainal Nerves: normal hearing, normal speech, PERRL Coordination/Gait: normal finger to nose, normal gait Motor/Sensory: no motor deficit, no sensory deficit Skin: normal color, warm/dry Progress/Results/Core Measures Results/Orders Lab Results Laboratory Tests Test 01/06/22 09:40 01/06/22 11:48 Range/Units White Blood Count 11.5 H 4.3-11.0 10^3/uL Red Blood Count 5.14 H 3.80-5.11 10^6/uL Hemoglobin 14.3 11.5-16.0 g/dL Hematocrit 43 35-52 % Mean Corpuscular Volume 83 80-99 fL Mean Corpuscular Hemoglobin 28 25-34 pg Mean Corpuscular Hemoglobin Concent 34 32-36 g/dL Red Cell Distribution Width 12.9 10.0-14.5 % Platelet Count 353 130-400 10^3/uL Mean Platelet Volume 9.1 9.0-12.2 fL Immature Granulocyte % (Auto) 0 % Neutrophils (%) (Auto) 66 42-75 % Lymphocytes (%) (Auto) 23 12-44 % Monocytes (%) (Auto) 8 0-12 % Eosinophils (%) (Auto) 2 0-10 % Basophils (%) (Auto) 0 0-10 % Neutrophils # (Auto) 7.6 1.8-7.8 10^3/uL Lymphocytes # (Auto) 2.7 1.0-4.0 10^3/uL Monocytes # (Auto) 0.9 0.0-1.0 10^3/uL Eosinophils # (Auto) 0.3 0.0-0.3 10^3/uL Basophils # (Auto) 0.1 0.0-0.1 10^3/uL Immature Granulocyte # (Auto) 0.0 0.0-0.1 10^3/uL Erythrocyte Sedimentation Rate 7 0-20 MM/HR Sodium Level 137 135-145 MMOL/L Potassium Level 5.1 H 3.6-5.0 MMOL/L Chloride Level 104 98-107 MMOL/L Carbon Dioxide Level 20 L 21-32 MMOL/L Anion Gap 13 5-14 MMOL/L Blood Urea Nitrogen 18 7-18 MG/DL Creatinine 0.73 0.60-1.30 MG/DL Estimat Glomerular Filtration Rate 107 BUN/Creatinine Ratio 25 Glucose Level 89 70-105 MG/DL Calcium Level 9.9 8.5-10.1 MG/DL Corrected Calcium 9.8 8.5-10.1 MG/DL Magnesium Level 1.9 1.6-2.4 MG/DL Total Bilirubin 0.4 0.1-1.0 MG/DL Aspartate Amino Transf (AST/SGOT) 30 5-34 U/L Alanine Aminotransferase (ALT/SGPT) 39 0-55 U/L Alkaline Phosphatase 125 40-136 U/L C-Reactive Protein High Sensitivity 0.32 0.00-0.50 MG/DL Total Protein 7.8 6.4-8.2 GM/DL Albumin 4.1 3.2-4.5 GM/DL Thyroid Stimulating Hormone (TSH) 2.71 0.35-4.94 UIU/ML Free Thyroxine 0.98 0.70-1.48 NG/DL My Orders Orders - STEPHANIE MAYER MD Ed Iv/Invasive Line Start (01/06/22 09:23) Cbc With Automated Diff (01/06/22 09:23) Comprehensive Metabolic Panel (01/06/22 09:23) Hs C Reactive Protein (01/06/22 09:23) Magnesium (01/06/22 09:23) Erythrocyte Sedimentation Rate (01/06/22 09:23) Ct Head Wo (01/06/22 09:23) Thyroid Stimulating Hormone (01/06/22 09:23) Free T4 (Free Thyroxine) (01/06/22 09:23) Ketorolac Injection (Toradol Injection) (01/06/22 11:00) Tick Panel With Lyme Eia (01/06/22 11:37) West Nile Virus Igg & M (01/06/22 11:37) Vitamin D 25-Hydroxy (01/06/22 11:37) Medications Given in ED Vital Signs/I&O 01/06/22 01/06/22 09:01 12:38 Temp 36.0 Pulse 105 92 Resp 16 14 B/P (MAP) 145/90 (108) 140/90 Pulse Ox 98 98 O2 Delivery Room Air Room Air Blood Pressure Mean: 108 Progress Progress Note #1: Time: 09:57 Progress Note Patient was interviewed and examined. I discussed the plan with her which is to evaluate basic labs and obtain a CT scan of the head. Pending the initial results, we may do further studies. If no obvious source of her headache is identified, I will discuss other possible etiologies such as hypertension, infectious causes such as tickborne disease or West Nile virus, organic causes such as pseudotumor cerebri, systemic issue such as vitamin D deficiency, etc. Progress Note #2: Progress Note No definitive cause of her headaches was identified in the ER. Further work-up is being pursued with pending tick panel and vitamin D studies. She is being empirically treated for both blood pressure and tickborne diseases by prescription of doxycycline and amlodipine. If these therapies do not resolve her headaches, further work-up could be considered with MRI of the head, LP for pseudotumor cerebri, etc. See discharge instructions for further discussion. She did have improvement in her pain with Toradol treatment. I discussed this case with Dr. Arias who will try to help make sure the patient secures follow-up. Diagnostic Imaging Diagonstic Imaging: CT Plain Films/CT/US/NM/MRI: head Comments CT head viewed by me and report reviewed. See report below: NAME: JASON REID [facility] REC#: [id number] PT STATUS: REG ER : 1980 PHYSICIAN: STEPHANIE MAYER MD ADMIT DATE: 01/06/22/ER Draft Date of Exam:01/06/22 CT HEAD WO PROCEDURE: CT head without contrast. TECHNIQUE: Multiple contiguous axial images were obtained through the brain without the use of intravenous contrast. Auto Exposure Controls were utilized during the CT exam to meet ALARA standards for radiation dose reduction. INDICATION: Pain behind the right ear. Head pain and pressure since November 12. EXAMINATION: CT brain without contrast 01/06/2022. FINDINGS: There is no hemorrhage or infarct. There is no mass, mass effect or midline shift. There is no hydrocephalus. Paranasal sinuses clear. Minimal partial opacification noted within the right mastoid air cells best seen on image #22. Left mastoid air cells clear. No calvarial fractures. IMPRESSION: 1. Age indeterminant partial opacification of the right mastoid air cells. 2. No acute intracranial process. Dictated on workstation # [id number] Dict: 01/06/22 1012 Trans: 01/06/22 1034 [facility] [id number] Interpreted by: JONH TONY MD Departure Impression Primary Impression: New persistent daily headache Additional Impression: Hypertension Qualified Codes: I10 - Essential (primary) hypertension Disposition: HOME, SELF-CARE Condition: Improved Departure-Patient Inst. Decision time for Depature: 11:53 Referrals: [facility] (PCP/Family) Primary Care Physician Patient Instructions: Headache, Adult ED Add. Discharge Instructions: No specific cause for your headache was revealed during your ER visit. You have some pending lab work that needs to be reviewed in clinic follow-up. This includes testing for West Nile virus, tickborne diseases, and vitamin D deficiency. These test should be resulted by the end of the week. Please review them with primary care staff at the [facility] clinic. Dr. Arias from the [facility] clinic was notified that these tests are pending and she should be able to help facilitate the follow-up in a timely manner. If you do not hear from the [facility] clinic by midweek, please call to ensure you can get prompt follow-up on these test results. You should also have your blood pressure checked at follow-up and discuss if further treatment is warranted. Tickborne diseases are a possible cause of persistent long-term headache. Please continue on doxycycline until the results of the tick panel lab are known. Vitamin D deficiency can cause persistent headaches as well. If your vitamin D level returns low, you will likely be prescribed high-dose vitamin D replacement therapy. New uncontrolled high blood pressure may cause daily headaches. Please start amlodipine as prescribed to help control your blood pressure. Also avoid stimulants that may increase your blood pressure such as diet pills, energy drinks, excessive caffeine, decongestant medications, etc. also avoid excessive salt and drink plenty of water. Ultimately, if you have persistent unexplained and uncontrolled headaches, you may need further evaluation with additional studies such as MRI of the head or a lumbar puncture to test for pseudotumor cerebri. You may use ibuprofen up to 600 mg every 6 hours as needed for headache. You may add Tylenol (acetaminophen) up to 1000 mg every 6 hours as needed for additional pain control if desired. Call with questions or concerns. Return to the ER if you have worsening symptoms despite following these instructions or if you develop new neurologic symptoms such as confusion, vision changes, vomiting, balance problems, numbness or weakness of body parts, speech problems, etc. All discharge instructions reviewed with patient and/or family. Voiced understanding. Scripts Amlodipine Besylate (Amlodipine Besylate) 5 Mg Tablet 5 MG PO DAILY, #30 TAB Prov: STEPHANIE MAYER MD 01/06/22 Doxycycline Hyclate (Doxycycline Hyclate) 100 Mg Tablet 100 MG PO BID, #20 TAB 0 Refills Prov: STEPHANIE MAYER MD 01/06/22 Copy Copies To 1: [facility] [place] STEPHANIE MAYER MD Jan 06, 2022 09:52
[2022-01-06 10:01] LABS: ALBUMIN 4.1 GM/DL (3.2-4.5)
[2022-01-06 10:02] LABS: POTASSIUM 5.1 MMOL/L (3.6-5.0)
[2022-01-06 10:03] LABS: CALCIUM 9.9 MG/DL (8.5-10.1)
[2022-01-06 10:04] LABS: TOTAL PROTEIN 7.8 GM/DL (6.4-8.2)
[2022-01-06 10:06] LABS: BILIRUBIN,TOTAL 0.4 MG/DL (0.1-1.0)
[2022-01-06 10:08] LABS: CREATININE SERUM 0.73 MG/DL (0.60-1.30)
[2022-01-06 10:10] LABS: MAGNESIUM 1.9 MG/DL (1.6-2.4)
[2022-01-06 10:11] LABS: ERYTHROCYTE SEDIMENTATION RATE 7 MM/HR (0-20)
[2022-01-06 10:33] LABS: FREE T4 (FREE THYROXINE) 0.98 NG/DL (0.70-1.48)
--- NOTE | 2022-01-06 10:35 | Diagnostic Imaging Report ---
PROCEDURE: CT head without contrast. TECHNIQUE: Multiple contiguous axial images were obtained through the brain without the use of intravenous contrast. Auto Exposure Controls were utilized during the CT exam to meet ALARA standards for radiation dose reduction. INDICATION: Pain behind the right ear. Head pain and pressure since November 12. EXAMINATION: CT brain without contrast 01/06/2022. FINDINGS: There is no hemorrhage or infarct. There is no mass, mass effect or midline shift. There is no hydrocephalus. Paranasal sinuses clear. Minimal partial opacification noted within the right mastoid air cells best seen on image #22. Left mastoid air cells clear. No calvarial fractures. IMPRESSION: 1. Age indeterminant partial opacification of the right mastoid air cells. 2. No acute intracranial process. Dictated by: Dictated on workstation # [id number]
[2022-01-06] MEDS ORDERED: KETOROLAC 30 MG/ML VIAL IVP ONE (11:00)
[2022-01-06] MEDS ORDERED: AMLO-250 PO (11:59)
[2022-01-06] MEDS ORDERED: DOXY100T2 PO (11:59)
[2022-01-06 12:38] VITALS: BP 140/90
== END 2022-01-06 12:38 | disposition home or self-care (01) ==
LOC: EDUNIT# 08:56 → ER 08:57
DX: I10 Essential (primary) hypertension (principal); E66.9 Obesity, unspecified; F17.210 Nicotine dependence, cigarettes, uncomplicated; Z68.28 Body mass index [BMI] 28.0-28.9, adult; Z28.310 Unvaccinated for COVID-19
CPT/HCPCS: 36415; 70450; 80053; 82306; 83735; 84439; 84443; 85025; 85652; 86141; 86618; 86666; 86668; 86757; 86788; 86789

== ENCOUNTER 2022-01-26 16:15 | Emergency (ER) | payer SELFPAY ==
[~2022-01-26] VITALS: Ht 172 cm; Wt 86.1 kg
[~2022-01-26 16:15] MED LIST changes: +AMLO-250 PO
[2022-01-26] MEDS ORDERED: diphenhydrAMINE 50 MG/ML INJ (BENADRYL) IVP ONE (17:00)
[2022-01-26] MEDS ORDERED: methylPREDNISolone 125 MG (Solu-MEDROL) VIAL IVP ONE (17:00)
[2022-01-26] MEDS ORDERED: FAMOTIDINE 20MG/2ML IV (PEPCID) IVP ONE (17:00)
--- NOTE | 2022-01-26 17:14 | ED General ---
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 PT STATES SHE NOW FEELS DIZZY, TINGLY ALL OVER, HAS A RASH ALL OVER HER BODY, AND HER VOICE IS HOARSE. PT DENIES SOA. Source of Information: Patient, Family Exam Limitations: No Limitations (EVE STONE MD) History of Present Illness Date Seen by Provider: Jan 26, 2022 Time Seen by Provider: 16:55 Initial Comments Patient is a 41-year-old female who presents to the emergency department with a chief complaint of itchy red hive-like rash all over her skin, a little bit of swollen tingly lips and tongue onset about 415 after she was stung by a hornet on the right upper extremity. Patient had a previous hornet sting about 3 weeks ago. She did not have a reaction as severe as this. She is not nauseous. She is not having abdominal pain. She does not feel short of breath. She has not taken anything for the symptoms. She is itching curiously. She feels "tingly" all over. No recent illnesses. She was recently diagnosed with hypertension and started on a new medication (amlodipine). All other review of systems reviewed and negative except as stated. Timing/Duration: 1/2 Hour Severity: Severe Associated Systoms: Other (itching rash) (EVE STONE MD) Allergies and Home Medications Allergies Coded Allergies: No Known Drug Allergies (Unverified , 12/21/19) Patient Home Medication List Home Medication List Reviewed: Yes (EVE STONE MD) Amlodipine Besylate (Amlodipine Besylate) 5 Mg Tablet, 5 MG PO DAILY Prescribed by: STEPHANIE HOLDER on 01/06/22 1159 Cefdinir (Cefdinir) 300 Mg Capsule, 300 MG PO BID Prescribed by: ANTONELLA BALLESTEROS on 01/13/20 1308 Doxycycline Hyclate (Doxycycline Hyclate) 100 Mg Tablet, 100 MG PO BID Prescribed by: STEPHANIE HOLDER on 01/06/22 1159 Epinephrine (Epipen 2-Ross) 0.3 Mg/0.3 Ml Auto.injct, 0.3 MG IJ ONCE PRN for anaphylaxis Prescribed by: EVE STONE on 01/26/22 171 Oxycodone HCl/Acetaminophen (Oxycodone-Acetaminophen 5-325) 1 Each Tablet, 1 EACH PO Q4H PRN for PAIN-SEVERE Prescribed by: ANTONELLA BALLESTEROS on 01/13/20 1054 Prednisone (Prednisone) 50 Mg Tab, 50 MG PO DAILY Prescribed by: EVE STONE on 01/26/22 171 Review of Systems Review of Systems Constitutional: see HPI EENTM: hoarseness, mouth swelling (lips (mild) and tip of tongue) Respiratory: no symptoms reported; No short of breath Cardiovascular: no symptoms reported Gastrointestinal: no symptoms reported; No diarrhea, No nausea Genitourinary: no symptoms reported Musculoskeletal: no symptoms reported Skin: lesions, pruritus, rash Psychiatric/Neurological: Anxiety (EVE STONE MD) All Other Systems Reviewed Negative Unless Noted: Yes (EVE STONE MD) Past Ubcnpbm-Shtvul-Fwyhba Hx Patient Social History Tobacco Use?: Yes Tobacco type used: Cigarettes Smoking Status: Current Everyday Smoker Substance use?: Yes Substance type: Marijuana Alcohol Use?: No Pt feels they are or have been: No (EVE STONE MD) Seasonal Allergies Seasonal Allergies: No (EVE STONE MD) Past Medical History Surgery/Hospitalization HX: PMH: HTN, SX: APPY, CERVIX REMOVED Surgeries: Yes (LEEP) Appendectomy Respiratory: No Cardiac: No Neurological: No Reproductive Disorders: Yes (Cervical dysplasia status post LEEP) Female Reproductive Disorders: Ovarian Cyst Genitourinary: No Gastrointestinal: No Musculoskeletal: No Endocrine: No HEENT: No Cancer: No Psychosocial: No Integumentary: No Blood Disorders: No (EVE STONE MD) Physical Exam Vital Signs Vital Signs - First Documented 01/26/22 16:24 Temp 36.9 Pulse 111 Resp 18 B/P (MAP) 135/92 (106) Pulse Ox 97 (MIKEYSHANA K DO) Vital Signs Capillary Refill : Less Than 3 Seconds (EVE STONE MD) Height, Weight, BMI Height: '" Weight: lbs. oz. kg; 29.00 BMI Method: General Appearance: WD/WN, Anxious, Mild Distress Eyes: Bilateral Eye Normal Inspection, Bilateral Eye PERRL, Bilateral Eye EOMI HEENT: PERRL/EOMI, TMs Normal, Normal ENT Inspection, Pharynx Normal, Moist Mucous Membranes, Other (No lesions on the lips or tongue. No significant swelling noted to the lips or tongue. Voice may be a little hoarse) Neck: Normal Inspection, Supple Respiratory: Lungs Clear, Normal Breath Sounds, No Accessory Muscle Use, No Respiratory Distress Cardiovascular: Regular Rate, Rhythm, Normal Peripheral Pulses, Tachycardia (Heart rate 110) Gastrointestinal: Non Tender, Soft Extremity: Normal Capillary Refill, Normal Inspection, Normal Range of Motion, Non Tender Neurologic/Psychiatric: Alert, Oriented x3, No Motor/Sensory Deficits, Normal Mood/Affect, polygraph examiner II-XII Norm as Tested Skin: Normal Color, Warm/Dry, Other (Patient has raised wheals over the posterior neck. She has diffuse erythema to the extremities, face and anterior neck. She has a large red urticarial raised area to the right deltoid with a central nidus where it appears she was stung. Slightly tender to palpation) (EVE STONE MD) Progress/Results/Core Measures Suspected Sepsis SIRS Temperature: Pulse: 111 Respiratory Rate: 18 Blood Pressure 135 /92 Mean: 106 (EVE STONE MD) Results/Orders My Orders Orders - SHANA RAO DO Ondansetron Oral Dissolve Tab (Zofran (01/26/22 18:09) Lidocaine 2% Viscous 15 Ml (Xylocaine Vi (01/26/22 18:15) Antacid Suspension (Mylanta Suspension (01/26/22 18:15) Prednisone Tablet (Deltasone Tablet) (01/26/22 19:00) Diphenhydramine Tablet (Benadryl Tablet) (01/26/22 19:00) Famotidine Tablet (Pepcid Tablet) (01/26/22 19:00) (SHANA RAO DO) Medications Given in ED Current Medications Medications Dose Ordered Sig/Faizan Route Start Time Stop Time Status Last Admin Dose Admin Al Hydrox/Mg Hydrox/Simethicone 30 ml ONCE ONCE PO 01/26/22 18:15 01/26/22 18:16 DC 01/26/22 18:23 30 ML Diphenhydramine HCl 50 mg ONCE ONCE IM 01/26/22 17:45 01/26/22 17:46 DC 01/26/22 17:39 50 MG Diphenhydramine HCl 50 mg ONCE ONCE PO 01/26/22 19:00 01/26/22 19:01 01/26/22 18:58 50 MG Famotidine 20 mg ONCE ONCE PO 01/26/22 17:45 01/26/22 17:46 DC 01/26/22 17:51 20 MG Famotidine 40 mg ONCE ONCE PO 01/26/22 19:00 01/26/22 19:01 01/26/22 18:58 40 MG Lidocaine HCl 15 ml ONCE ONCE PO 01/26/22 18:15 01/26/22 18:16 DC 01/26/22 18:22 15 ML Methylprednisolone Sodium Succinate 125 mg ONCE ONCE IM 01/26/22 17:45 01/26/22 17:46 DC 01/26/22 17:38 125 MG Prednisone 60 mg ONCE ONCE PO 01/26/22 19:00 01/26/22 19:01 01/26/22 18:58 60 MG (SHANA RAO DO) Vital Signs/I&O 01/26/22 16:24 Temp 36.9 Pulse 111 Resp 18 B/P (MAP) 135/92 (106) Pulse Ox 97 (MIKEYSHANA K DO) Vital Signs/I&O Capillary Refill : Less Than 3 Seconds (EVE STONE MD) Blood Pressure Mean: 106 Progress Note : Time: 17:45 Progress Note notified by FABRICIO Cerda that she inadvertantly gave pepcid IM. quick review if the literature shows it is not as effective IM - no untoward effects documented. will monitor and give an additional dose PO. disposition - will be to home if improvement after monitoring 1 hour - Dr Rao to dispo ultimately. (EVE STONE MD) Progress Note : Progress Note 1800--ASSUMED CARE OF PATIENT FROM DR. STONE, PT RECEIVED MEDICATIONS ABOUT 20 MINUTES AGO, STATES SHE IS FEELING SLIGHTLY BETTER, SLIGHTLY LESS ITCHY PT C/O NAUSEA--ZOFRAN AND GI COCKTAIL GIVEN WITH IMPROVEMENT IN SYMPTOMS 1850--PT IS FEELING BETTER, NO LONGER ITCHING, HIVES ARE FADING. STILL HAS LOCAL REACTION AROUND STING SITE TO MOST OF RIGHT UPPER ARM, WILL GIVE ADDITIONAL PO MEDICATIONS, PRIOR TO DISMISSAL PT STATES SHE FEELS COMFORTABLE GOING HOME AT THIS TIME. RETURN PRECAUTIONS DISCUSSED AT DISMISSAL, PT STATES THAT SHE WAS DX WITH [facility] IN DECEMBER, AND PRESCRIBED DOXYCYCLINE, BUT NEVER FILLED THE PRESCRIPTION, SHE IS REQUESTING THAT A NEW PRESCRIPTION BE SENT TO PHARMACY (SHANA RAO DO) Departure Impression Primary Impression: Sting from hornet, wasp, or bee Qualified Codes: T63.451A - Toxic effect of venom of hornets, accidental (unintentional), initial encounter; T63.441A - Toxic effect of venom of bees, accidental (unintentional), initial encounter; T63.461A - Toxic effect of venom of wasps, accidental (unintentional), initial encounter Additional Impressions: Allergic reaction Qualified Codes: T78.40XA - Allergy, unspecified, initial encounter RECENT DIAGNOSIS OF [place] SPOTTED FEVER Disposition: HOME, SELF-CARE Condition: Improved Departure-Patient Inst. Decision time for Depature: 15:13 (EVE STONE MD) Decision time for Depature: 18:50 (SHANA RAO DO) Referrals: [facility] [place] Primary Care Physician Patient Instructions: Allergic Reaction ED Add. Discharge Instructions: Cool compresses to the area of the wasp/hornet sting on your right arm. Take Benadryl 2 tablets every 6 hours as needed for itching for the next 24-48 hours. Take Pepcid 20 mg twice daily for the next 2 to 3 days. Prednisone 50 mg once a day for the next 3 days. Return to the emergency department for any worsening rash, swelling, shortness of breath or other emergent, concerning symptoms. I have prescribed you an EpiPen. If you have another sting and become short of breath, feel like you are going to pass out or feel like your throat is closing up use the EpiPen as directed by the pharmacist and call 911. Scripts Doxycycline Hyclate (Doxycycline Hyclate) 100 Mg Tablet 100 MG PO BID, #20 TAB 0 Refills Prov: SHANA RAO DO 01/26/22 Prednisone (Prednisone) 50 Mg Tab 50 MG PO DAILY for 3 Days, #3 TAB start 01/27/22 Prov: EVE STONE MD 01/26/22 Epinephrine (Epipen 2-Ross) 0.3 Mg/0.3 Ml Auto.injct 0.3 MG IJ ONCE PRN for anaphylaxis, #1 ML Prov: EVE STONE MD 01/26/22 EVE STONE MD Jan 26, 2022 17:14 SHANA RAO DO Jan 26, 2022 18:51
[2022-01-26] MEDS ORDERED: EPIN0.3P3 IJ (17:16)
[2022-01-26] MEDS ORDERED: PRD50T PO (17:16)
[2022-01-26] MEDS ORDERED: diphenhydrAMINE 50 MG/ML INJ (BENADRYL) IM ONE (17:45)
[2022-01-26] MEDS ORDERED: methylPREDNISolone 125 MG (Solu-MEDROL) VIAL IM ONE (17:45)
[2022-01-26] MEDS ORDERED: FAMOTIDINE 20 MG (PEPCID) TABLET PO ONE ×2 (17:45→19:00)
[2022-01-26] MEDS ORDERED: ONDANSETRON 4 MG (ZOFRAN) ORAL DISSOLVE TAB PO STA (18:09)
[2022-01-26] MEDS ORDERED: LIDOCAINE 2% VISCOUS 15 ML UDC PO ONE (18:15)
[2022-01-26] MEDS ORDERED: ANTACID SUSP 30 ML UDC (MYLANTA) PO ONE (18:15)
[2022-01-26] MEDS ORDERED: predniSONE 20 MG TAB PO ONE (19:00)
[2022-01-26] MEDS ORDERED: diphenhydrAMINE 25 MG TAB (BENADRYL) PO ONE (19:00)
[2022-01-26] MEDS ORDERED: DOXY100T2 PO (19:02)
[2022-01-26 19:09] VITALS: BP 149/92
[2022-01-27] MEDS ORDERED: DOXY100T2 PO (13:06)
[2022-01-27] MEDS ORDERED: EPIN0.3P3 IJ (13:06)
[2022-01-27] MEDS ORDERED: PRD50T PO (13:06)
== END 2022-01-26 19:09 | disposition home or self-care (01) ==
LOC: EDUNIT# 16:15 → ER 16:18
DX: T63.451A Toxic effect of venom of hornets, accidental (unintentional), initial encounter (principal); T63.461A Toxic effect of venom of wasps, accidental (unintentional), initial encounter; T78.40XA Allergy, unspecified, initial encounter; F17.210 Nicotine dependence, cigarettes, uncomplicated; Z28.310 Unvaccinated for COVID-19
CPT/HCPCS: 99284